=== PATIENT | female | born 1990 | race Caucasian/White ===

== ENCOUNTER 2017-10-21 07:16 | Inpatient (IN) | payer OTHER ==
[2017-10-21] MEDS ORDERED: Misoprostol 50 MCG (1/2 of 100 MCG) Tab ONE (07:57)
[2017-10-21] MEDS ORDERED: Misoprostol 50 MCG (1/2 of 100 MCG) Tab VAG ONE (08:06)
[2017-10-21] MEDS ORDERED: Acetaminophen 325 MG Tab PO PRN (08:13)
[2017-10-21] MEDS ORDERED: Sodium Chloride 0.9% 10 ML Syringe FLUSH PRN (08:13)
[2017-10-21] MEDS ORDERED: Ondansetron 4 MG Tab.DIS PO PRN (08:13)
[2017-10-21] MEDS ORDERED: Penicillin G Potassium 5 MILLUNITS in Sodium Chloride 0.9% 100 ML IV ONE (08:15)
--- NOTE | 2017-10-21 08:29 | PCM.LDHP ---
L&D History of Present Illness - General Date of Service: 10/21/17 (induction) Admit Problem/Dx: Patient Status Order with Admit Dx/Problem 10/21/17 08:13 Patient Status [ADT] Routine Admission Diagnosis/Problem Admission Diagnosis/Problem and not yet delivered Source of Information: Patient History Limitations: Reports: No Limitations - History of Present Illness Introduction:: 10/21/17 This 27 year old G1 who is 41 weeks presents for induction of labor. CE: /0 this morning. Labs: ABO AB pos RUbella Immune HIV neg GBS positive, treatment started - Related Data Allergies/Adverse Reactions: Allergies Allergy/AdvReac Type Severity Reaction Status Date / Time No Known Allergies Allergy Verified 09/16/17 12:32 Home Medications: Home Meds Cephalexin [Keflex] 500 mg PO BID 09/16/17 [History] Ondansetron [Zofran ODT] 8 mg PO Q8H 09/16/17 [History] hydrOXYzine Pamoate [Vistaril] 50 mg PO TID 09/16/17 [History] Past Medical History Respiratory History: Reports: Other (See Below) Other Respiratory History: Exercise induced asthma years ago. 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 Para: 0 LMP (Approximate): (SANJANA 10/14/17) - Infectious Disease History Infectious Disease History: Reports: Chicken Pox Social & Family History - Family History Family Medical History: Noncontributory - Tobacco Use Smoking Status *Q: Never Smoker Second Hand Smoke Exposure: No - Caffeine Use Caffeine Use: Reports: Coffee Other Caffeine Use: 1 cup per day - Recreational Drug Use Recreational Drug Use: No H&P Review of Systems - Review of Systems: Review Of Systems: See Below General: Reports: No Symptoms HEENT: Reports: No Symptoms Pulmonary: Reports: No Symptoms Cardiovascular: Reports: No Symptoms Gastrointestinal: Reports: No Symptoms Genitourinary: Reports: No Symptoms Musculoskeletal: Reports: No Symptoms Skin: Reports: No Symptoms Psychiatric: Reports: No Symptoms Neurological: Reports: No Symptoms Hematologic/Lymphatic: Reports: No Symptoms Immunologic: Reports: No Symptoms L&D Exam - Exam Exam: See Below - Vital Signs Vital Signs: Last Vital Signs Temp 96.8 F 10/21/17 07:24 Pulse 84 10/21/17 07:24 Resp 18 10/21/17 07:24 BP 103/69 10/21/17 07:24 Pulse Ox Weight: 158 lb - OB Specific Movement: Active Heart Tones: Present Heart Tones per Min: 140 Heart Rate (FHR) Variability: Moderate (6-25 bmp) Presentation: Vertex Estimated Weight: 8 pounds - Huang Score Huang Score Cervix Position: Posterior Huang Score Consistency: Soft Huang Score Effacement: >80% Huang Score Dilation: 1-2 cm Huang Score 's Station: -1 ,0 Huang Score Total: 8 - Exam General: Alert, Oriented HEENT: PERRLA, Conjunctiva Clear, EACs Clear, EOMI, Hearing Intact, Mucosa Moist & [place], Nares Patent, Normal Nasal Septum, Posterior Pharynx Clear, TMs Clear Neck: Supple, Trachea Midline Lungs: Clear to Auscultation, Normal Respiratory Effort Cardiovascular: Regular Rate, Regular Rhythm GI/Abdominal Exam: Normal Bowel Sounds, Soft, Non-Tender, No Organomegaly, No Distention, No Abnormal Bruit, No Mass, Pelvis Stable Rectal Exam: Normal Exam, Normal Rectal Tone Genitourinary: Normal external exam, Normal bimanual exam, Normal speculum exam Back Exam: Normal Inspection, Full Range of Motion Extremities: Normal Inspection, Normal Range of Motion, Non-Tender, No Pedal Edema, Normal Capillary Refill Skin: Warm, Dry, Intact Neurological: Cranial Nerves Intact, Reflexes Equal Bilateral Psychiatric: Alert, Normal Affect, Normal Mood - Patient Data Lab Results Last 24 hrs: Laboratory Results - last 24 hr 10/21/17 10/21/17 10/21/17 Range/Units 07:30 07:40 07:40 WBC 10.7 (4.5-11.0) K/uL RBC 3.68 (3.30-5.50) M/uL Hgb 12.2 (12.0-15.0) g/dL Hct 34.2 L (36.0-48.0) % MCV 93 (80-98) fL MCH 33 H (27-31) pg MCHC 36 (32-36) % Plt Count 228 (150-400) K/uL Neut % (Auto) 65 (36-66) % Lymph % (Auto) 27 (24-44) % [place] % (Auto) 7 H (2-6) % Eos % (Auto) 1 L (2-4) % Baso % (Auto) 0 (0-1) % Urine Color Yellow Urine Appearance Cloudy Urine pH 7.0 (4.5-8.0) Ur Specific [place] 1.010 (1.008-1.030) Urine Protein Negative (NEGATIVE) mg/dL Urine Glucose (UA) Normal (NEGATIVE) mg/dL Urine Ketones Negative (NEGATIVE) mg/dL Urine Occult Blood Negative (NEGATIVE) Urine Nitrite Negative (NEGATIVE) Urine Bilirubin Negative (NEGATIVE) Urine Urobilinogen Normal (NORMAL) mg/dL Ur Leukocyte Esterase Negative (NEGATIVE) Urine RBC Not seen (0-5) Urine WBC 0-5 (0-5) Ur Epithelial Cells Many Amorphous Sediment Not seen Urine Bacteria Many Urine Mucus Not seen Urine Opiates Screen Negative (NEGATIVE) Ur Oxycodone Screen Negative (NEGATIVE) Urine Methadone Screen Negative (NEGATIVE) Ur Propoxyphene Screen Negative (NEGATIVE) Ur Barbiturates Screen Negative (NEGATIVE) Ur Tricyclics Screen Negative (NEGATIVE) Ur Phencyclidine Scrn Negative (NEGATIVE) Ur Amphetamine Screen Negative (NEGATIVE) U Methamphetamines Scrn Negative (NEGATIVE) Urine MDMA Screen Negative (NEGATIVE) U Benzodiazepines Scrn Negative (NEGATIVE) U Cocaine Metab Screen Negative (NEGATIVE) U Marijuana (THC) Screen Negative (NEGATIVE) Result Diagrams: 10/21/17 07:30 - Problem List (1) Positive GBS test SNOMED Code(s): 5805798976351 ICD Code: B95.1 - STREPTOCOCCUS, GROUP B, CAUSING DISEASES CLASSD ELSWHR Status: Acute Current Visit: Yes (2) Encounter for planned induction of labor SNOMED Code(s): 992730522 ICD Code: Z34.90 - ENCNTR FOR SUPRVSN OF NORMAL , UNSP, UNSP TRIMESTER Status: Acute Current Visit: Yes (3) Post-dates SNOMED Code(s): 95770135 ICD Code: O48.0 - POST-TERM Status: Acute Current Visit: Yes Problem List Initiated/Reviewed/Updated: Yes Orders Last 24hrs: Active Orders 24 hr Category Date Time Status Patient Status [ADT] Routine ADT 10/21/17 08:13 Ordered Antiembolic Devices [RC] .Routine Care 10/21/17 08:19 Ordered Communication Order [RC] ASDIRECTED Care 10/21/17 08:13 Ordered Heart Tones [RC] PER UNIT ROUTINE Care 10/21/17 08:13 Ordered May Shower [RC] ASDIRECTED Care 10/21/17 08:13 Ordered Notify Provider Vital Signs [RC] PRN Care 10/21/17 08:13 Ordered Notify Provider [RC] PRN Care 10/21/17 08:13 Ordered Peripheral IV Care [RC] . DIRECTED Care 10/21/17 08:19 Ordered Up ad Kelly [RC] ASDIRECTED Care 10/21/17 08:13 Ordered VTE/DVT Education [RC] Click to Edit Care 10/21/17 08:19 Ordered Vital Signs [RC] PER UNIT ROUTINE Care 10/21/17 08:13 Ordered Clear Liquid Diet [DIET] Diet 10/21/17 Lunch Ordered Acetaminophen [Tylenol] Med 10/21/17 08:13 Ordered 650 mg PO Q4H PRN Ondansetron [Zofran ODT] Med 10/21/17 08:13 Ordered 4 mg PO Q4H PRN Oxytocin/Normal Saline [Pitocin in NS 20 Units/1,000 ML Med 10/21/17 08:21 Ordered ] 20 unit in 1,000 ml IV ONETIME Penicillin G Potassium [Pfizerpen] 2.5 millunits Med 10/21/17 12:00 Active Sodium Chloride 0.9% [Normal Saline] 50 ml IV Q4H Penicillin G Potassium [Pfizerpen] 5 millunits Med 10/21/17 08:15 Active Sodium Chloride 0.9% [Normal Saline] 100 ml IV ONETIME Sodium Chloride 0.9% [Saline Flush] Med 10/21/17 08:13 Ordered 10 ml FLUSH ASDIRECTED PRN DVT/VTE Prophylaxis Reflex [OM.PC] Routine Oth 10/21/17 08:13 Ordered Peripheral IV Insertion Adult [OM.PC] Routine Oth 10/21/17 08:13 Ordered Saline Lock Insert [OM.PC] Routine Oth 10/21/17 08:13 Ordered Resuscitation Status Routine Resus Stat 10/21/17 08:13 Ordered Medication Orders Acetaminophen (Tylenol) 650 mg PO Q4H PRN PRN Reason: Pain (Mild 1-3) and fever Penicillin G Potassium 5 (millunits/ Sodium Chloride) 100 mls @ 200 mls/hr IV ONETIME ONE Stop: 10/21/17 08:44 Penicillin G Potassium 2.5 (millunits/ Sodium Chloride) 50 mls @ 100 mls/hr IV Q4H SUSHIL Oxytocin/Sodium Chloride (Pitocin In Ns 20 Units/1,000 Ml) 20 unit in 1,000 mls @ 999 mls/hr IV ONETIME ONE PRN Reason: Protocol Stop: 10/21/17 09:21 Ondansetron HCl (Zofran Odt) 4 mg PO Q4H PRN PRN Reason: Nausea/Vomiting Sodium Chloride (Saline Flush) 10 ml FLUSH ASDIRECTED PRN PRN Reason: Keep Vein Open Assessment/Plan Comment:: 10/21/17 41 week IUP who is post dates, GBS positive induction for post dates Plan Misoprostol 50 mcg vaginally at 0800 monitor for labor up and about after one hour monitoring completed. GBS protocol
[2017-10-21] MEDS: Penicillin G Potassium 2.5 MILLUNITS in Sodium Chloride 0.9% 50 ML IV SCH ×3 (12:09→21:31)
--- NOTE | 2017-10-21 12:14 | PCM.PNLD ---
Labor Progress Note - VS & Meds Vital Signs: Last Vital Signs Temp 96.8 F 10/21/17 07:24 Pulse 84 10/21/17 07:24 Resp 18 10/21/17 08:40 BP 97/65 10/21/17 08:40 Pulse Ox Active Medications: Current Medications Acetaminophen (Tylenol) 650 mg PO Q4H PRN PRN Reason: Pain (Mild 1-3) and fever Penicillin G Potassium 2.5 (millunits/ Sodium Chloride) 50 mls @ 100 mls/hr IV Q4H SUSHIL Ondansetron HCl (Zofran Odt) 4 mg PO Q4H PRN PRN Reason: Nausea/Vomiting Sodium Chloride (Saline Flush) 10 ml FLUSH ASDIRECTED PRN PRN Reason: Keep Vein Open Discontinued Medications Penicillin G Potassium 5 (millunits/ Sodium Chloride) 100 mls @ 200 mls/hr IV ONETIME ONE Stop: 10/21/17 08:44 Last Admin: 10/21/17 08:32 Dose: 200 mls/hr Oxytocin/Sodium Chloride (Pitocin In Ns 20 Units/1,000 Ml) 20 unit in 1,000 mls @ 999 mls/hr IV ONETIME ONE PRN Reason: Protocol Stop: 10/21/17 09:21 Misoprostol (Cytotec) Confirm Administered Dose 50 mcg .ROUTE .STK-MED ONE Stop: 10/21/17 07:58 Last Admin: 10/21/17 08:13 Dose: Not Given Misoprostol (Cytotec) 50 mcg VAG ONETIME ONE Stop: 10/21/17 08:07 Last Admin: 10/21/17 07:55 Dose: 50 mcg - Uterine Contractions Uterine Monitoring Mode: External [place] Contraction Frequency (min): 1-3 Contraction Duration (sec): 40-60 Contraction Intensity: Mild to Moderate Uterine Resting Tone: Soft - Monitoring Monitor Mode: External Ultrasound Heart Rate (FHR) Baseline: 140 Heart Rate (FHR) Variability: Moderate (6-25 bmp) Accelerations: Present, 15x15 Decelerations: None Strip Review: Category I - Vaginal Exam Dilation (cm): 2 Effacement (Percent): 90 Station: 1 Cervical Position: Posterior Sterile Vaginal Exam Performed By: Carey Farah Vaginal Exam Comment: Bulging bag - Labor Progress (Free Text) Labor Progress: Contractions stronger some cervical change will reassess at 1530
--- NOTE | 2017-10-21 15:39 | PCM.PNLD ---
Labor Progress Note - VS & Meds Vital Signs: Last Vital Signs Temp 97.2 F 10/21/17 15:03 Pulse 67 10/21/17 15:03 Resp 16 10/21/17 15:03 BP 112/62 10/21/17 15:03 Pulse Ox 97 10/21/17 15:03 Active Medications: Current Medications Acetaminophen (Tylenol) 650 mg PO Q4H PRN PRN Reason: Pain (Mild 1-3) and fever Penicillin G Potassium 2.5 (millunits/ Sodium Chloride) 50 mls @ 100 mls/hr IV Q4H SUSHIL Last Admin: 10/21/17 12:09 Dose: 100 mls/hr Ondansetron HCl (Zofran Odt) 4 mg PO Q4H PRN PRN Reason: Nausea/Vomiting Sodium Chloride (Saline Flush) 10 ml FLUSH ASDIRECTED PRN PRN Reason: Keep Vein Open Discontinued Medications Penicillin G Potassium 5 (millunits/ Sodium Chloride) 100 mls @ 200 mls/hr IV ONETIME ONE Stop: 10/21/17 08:44 Last Admin: 10/21/17 08:32 Dose: 200 mls/hr Oxytocin/Sodium Chloride (Pitocin In Ns 20 Units/1,000 Ml) 20 unit in 1,000 mls @ 999 mls/hr IV ONETIME ONE PRN Reason: Protocol Stop: 10/21/17 09:21 Misoprostol (Cytotec) Confirm Administered Dose 50 mcg .ROUTE .STK-MED ONE Stop: 10/21/17 07:58 Last Admin: 10/21/17 08:13 Dose: Not Given Misoprostol (Cytotec) 50 mcg VAG ONETIME ONE Stop: 10/21/17 08:07 Last Admin: 10/21/17 07:55 Dose: 50 mcg - Uterine Contractions Uterine Monitoring Mode: External [place] Contraction Frequency (min): 2 Contraction Duration (sec): 60-65 Contraction Intensity: Mild to Moderate Uterine Resting Tone: Soft - Monitoring Monitor Mode: External Ultrasound Heart Rate (FHR) Baseline: 140 Heart Rate (FHR) Variability: Moderate (6-25 bmp) Accelerations: Present, 15x15 Decelerations: None Strip Review: Category I - Vaginal Exam Dilation (cm): 3 Effacement (Percent): 90 Station: 1 Cervical Position: Anterior Sterile Vaginal Exam Performed By: Carey Farah Vaginal Exam Comment: Bulging bag, membranes stripped - Labor Progress (Free Text) Labor Progress: Larissa regularly, latent labor
[2017-10-21] MEDS ORDERED: Lactated Ringers 500 ML IV SCH (17:30)
--- NOTE | 2017-10-21 18:04 | PCM.PNLD ---
Labor Progress Note - VS & Meds Vital Signs: Last Vital Signs Temp 97.2 F 10/21/17 15:03 Pulse 67 10/21/17 15:03 Resp 16 10/21/17 15:03 BP 112/62 10/21/17 15:03 Pulse Ox 97 10/21/17 15:03 Active Medications: Current Medications Acetaminophen (Tylenol) 650 mg PO Q4H PRN PRN Reason: Pain (Mild 1-3) and fever Penicillin G Potassium 2.5 (millunits/ Sodium Chloride) 50 mls @ 100 mls/hr IV Q4H [facility] Last Admin: 10/21/17 15:55 Dose: 100 mls/hr Lactated Ringer's (Ringers, Lactated) 500 mls @ 500 mls/hr IV ASDIRECTED SUSHIL Ondansetron HCl (Zofran Odt) 4 mg PO Q4H PRN PRN Reason: Nausea/Vomiting Sodium Chloride (Saline Flush) 10 ml FLUSH ASDIRECTED PRN PRN Reason: Keep Vein Open Discontinued Medications Penicillin G Potassium 5 (millunits/ Sodium Chloride) 100 mls @ 200 mls/hr IV ONETIME ONE Stop: 10/21/17 08:44 Last Admin: 10/21/17 08:32 Dose: 200 mls/hr Oxytocin/Sodium Chloride (Pitocin In Ns 20 Units/1,000 Ml) 20 unit in 1,000 mls @ 999 mls/hr IV ONETIME ONE PRN Reason: Protocol Stop: 10/21/17 09:21 Misoprostol (Cytotec) Confirm Administered Dose 50 mcg .ROUTE .STK-MED ONE Stop: 10/21/17 07:58 Last Admin: 10/21/17 08:13 Dose: Not Given Misoprostol (Cytotec) 50 mcg VAG ONETIME ONE Stop: 10/21/17 08:07 Last Admin: 10/21/17 07:55 Dose: 50 mcg - Uterine Contractions Uterine Monitoring Mode: External [place] Contraction Frequency (min): 1-3.5 Contraction Duration (sec): 40-80 Contraction Intensity: Mild to Moderate Uterine Resting Tone: Soft - Monitoring Monitor Mode: External Ultrasound Heart Rate (FHR) Baseline: 140 Heart Rate (FHR) Variability: Moderate (6-25 bmp) Accelerations: Present, 15x15 Decelerations: None Strip Review: Category I - Vaginal Exam Dilation (cm): 5 Effacement (Percent): 90 Station: 1 Cervical Position: Anterior Sterile Vaginal Exam Performed By: Carey Farah Vaginal Exam Comment: Bulging bag, membranes stripped - Labor Progress (Free Text) Labor Progress: nice progress, now active
[2017-10-21] MEDS ORDERED: fentaNYL 100 MCG/2 ML SDV IVPUSH ONE (19:51)
--- NOTE | 2017-10-21 20:13 | PCM.PNLD ---
Labor Progress Note - VS & Meds Vital Signs: Last Vital Signs Temp 97.3 F 10/21/17 17:46 Pulse 62 10/21/17 17:46 Resp 18 10/21/17 17:46 BP 117/68 10/21/17 17:46 Pulse Ox 95 10/21/17 17:46 Active Medications: Current Medications Acetaminophen (Tylenol) 650 mg PO Q4H PRN PRN Reason: Pain (Mild 1-3) and fever Penicillin G Potassium 2.5 (millunits/ Sodium Chloride) 50 mls @ 100 mls/hr IV Q4H [facility] Last Admin: 10/21/17 15:55 Dose: 100 mls/hr Lactated Ringer's (Ringers, Lactated) 500 mls @ 500 mls/hr IV ASDIRECTED [facility] Last Admin: 10/21/17 18:04 Dose: 500 mls/hr Ondansetron HCl (Zofran Odt) 4 mg PO Q4H PRN PRN Reason: Nausea/Vomiting Sodium Chloride (Saline Flush) 10 ml FLUSH ASDIRECTED PRN PRN Reason: Keep Vein Open Discontinued Medications Fentanyl (Sublimaze) 100 mcg IVPUSH ONETIME ONE Stop: 10/21/17 19:52 Last Admin: 10/21/17 20:03 Dose: 100 mcg Penicillin G Potassium 5 (millunits/ Sodium Chloride) 100 mls @ 200 mls/hr IV ONETIME ONE Stop: 10/21/17 08:44 Last Admin: 10/21/17 08:32 Dose: 200 mls/hr Oxytocin/Sodium Chloride (Pitocin In Ns 20 Units/1,000 Ml) 20 unit in 1,000 mls @ 999 mls/hr IV ONETIME ONE PRN Reason: Protocol Stop: 10/21/17 09:21 Misoprostol (Cytotec) Confirm Administered Dose 50 mcg .ROUTE .STK-MED ONE Stop: 10/21/17 07:58 Last Admin: 10/21/17 08:13 Dose: Not Given Misoprostol (Cytotec) 50 mcg VAG ONETIME ONE Stop: 10/21/17 08:07 Last Admin: 10/21/17 07:55 Dose: 50 mcg - Uterine Contractions Uterine Monitoring Mode: None in Use Contraction Frequency (min): 1-4 Contraction Duration (sec): 70-90 Contraction Intensity: Mild to Moderate Uterine Resting Tone: Soft - Monitoring Monitor Mode: External Ultrasound Heart Rate (FHR) Baseline: 140 Heart Rate (FHR) Variability: Moderate (6-25 bmp) Accelerations: Present, 15x15 Decelerations: None Strip Review: Category I - Vaginal Exam Dilation (cm): 5 Effacement (Percent): 100 Station: 1 Cervical Position: Anterior Sterile Vaginal Exam Performed By: Carey Farah Vaginal Exam Comment: AROM @1948 clear fluid - Labor Progress (Free Text) Labor Progress: Very uncomfortable had IV Fentanyl, helped with relaxing her. Planning for vaginal delivery
[2017-10-21] MEDS ORDERED: ePHEDrine 50 MG/ML SDV IVPUSH ONE (20:32)
[2017-10-21] MEDS ORDERED: Lactated Ringers 1,000 ML IV ONE ×3 (20:32→22:40)
[2017-10-21] MEDS ORDERED: ePHEDrine 50 MG/ML SDV IV PRN (20:34)
[2017-10-21] MEDS ORDERED: Naloxone 0.4 MG/ML SDV IVPUSH PRN (20:35)
[2017-10-21] MEDS ORDERED: Ropivacaine 100 ML EPIDUR SCH (20:35)
[2017-10-21] MEDS ORDERED: Misoprostol 200 MCG Tab ONE ×3 (22:56→23:01)
[2017-10-21] MEDS ORDERED: Methylergonovine 0.2 MG/1 ML Amp IV ONE (23:00)
[2017-10-22] MEDS ORDERED: Witch Hazel Medicated Pads 100/Jar TOP PRN (00:06)
[2017-10-22] MEDS ORDERED: Benzocaine 20% Top Spray 56 GM Bottle TOP PRN (00:06)
[2017-10-22] MEDS ORDERED: Acetaminophen/Codeine 300-30 MG Tab PO PRN (00:06)
[2017-10-22] MEDS ORDERED: Lanolin 100% Cream 40 GM Tube TOP PRN (00:06)
[2017-10-22] MEDS ORDERED: Methylergonovine 0.2 MG Tab PO PRN (00:11)
--- NOTE | 2017-10-22 00:11 | PCM.DEL ---
<Lola Anderson - Last Filed: 10/22/17 00:06> L & D Note - General Info Date of Service: 10/21/17 Mother's Due Date: 10/14/17 - Delivery Note Labor: Spontaneous, Induced by ARM, Induced by Oxytocin Cervical Ripening Method: Misoprostil Delivery Outcome: Livebirth Delivery Method: Spontaneous Vaginal Delivery-Single Infant Delivery Mode: Spontaneous Presentation: Left Occiput Anterior (ANNIE) Nuchal Cord: None Anesthesia Type: Epidural Amniotic Fluid Description: Clear Episiotomy Type: None Laceration: 2nd Degree, Labial (Right labial hole repaired with running and interrupted sutures; left labial split repaired with running sutures; ), Perineal (2nd degree perineal tear repaired with locking), Vaginal (vaginal wall tear repaired with interrupted sutures) Suture type: Vicryl Suture size: 3-0 Placenta: Intact, Expressed Cord: 3 Vessels Estimated Blood Loss: 500 (mL) Resuscitation Needed: No : Stimulated, Warmed Score 1 min: 9 Score 5 min: 9 Post Delivery Events: Hemorrhage Second Stage Interventions: Reports: Encouragement Given, Laboring Down, Pushing Effectively, Pushing, Pulls Own Legs Back, Pushing, Squat Bar Pulling on Sheet Delivery Comments (Free Text/Narrative):: Abigail Dang is a 27 year old G1 now P1 female who presented for induction today at 41w and 0d and delivered a healthy male ANNIE with Apgars of 9 and 9 at 22:50 via spontaneous vaginal delivery. 3 cord vessel. Placenta expressed with uterine massage, gentle cord traction, and IV pitocin--appears complete/intact with expected calcifications per post-dates. Several labial, perineal, and vaginal lacerations. Specifically: Right labial hole repaired with running adn interrupted sutures; left labial split/tear repaired with running stitches; 2nd degree perineal laceration repaired with locking sutures; 2nd degree vaginal wall laceration repaired with interrupted sutures. EBL: 500mL; managed with 1 dose 0.2mg IM methergine; 2 large bore IVs in placed ; pt received nearly 2L lactated ringers Dispo: mother with baby in recovery room in stable condition Induction Criteria - Huang Score Huang Score Dilation: 1-2 cm Huang Score Effacement: 40-50% Huang Score Infant's Station: -1 ,0 Huang Score Consistency: Soft Huang Score Cervix Position: Posterior Huang Score Total: 6 Huang Score Presenting Part: Reports: Cephalic - Induction Gestational Age >/= 39 wks: Yes Estimated Pelvis: Reports: Adequate Reassuring Monitoring Strip: Yes Absence of Tachy Systole: Yes - General Info Date of Service: 10/21/17 Admission Dx/Problem (Free Text): spontaneous vaginal delivery Functional Status: Reports: Pain Controlled (with epidural) - Review of Systems General: Reports: No Symptoms HEENT: Reports: No Symptoms Pulmonary: Reports: No Symptoms Cardiovascular: Reports: No Symptoms Gastrointestinal: Reports: No Symptoms Genitourinary: Reports: No Symptoms Musculoskeletal: Reports: No Symptoms Skin: Reports: No Symptoms Neurological: Reports: No Symptoms Psychiatric: Reports: No Symptoms - Patient Data Vitals - Most Recent: Last Vital Signs Temp 98.4 F 10/21/17 20:39 Pulse 70 10/21/17 21:07 Resp 18 10/21/17 21:07 BP 116/65 10/21/17 21:07 Pulse Ox 99 10/21/17 21:07 Weight - Most Recent: 158 lb 0.014 oz I&O - Last 24 Hours: Intake & Output 10/21/17 10/21/17 10/22/17 14:59 22:59 06:59 Intake Total 550 1600 Balance 550 1600 Lab Results Last 24 Hours: Laboratory Results - last 24 hr 10/21/17 10/21/17 10/21/17 Range/Units 07:30 07:40 07:40 WBC 10.7 (4.5-11.0) K/uL RBC 3.68 (3.30-5.50) M/uL Hgb 12.2 (12.0-15.0) g/dL Hct 34.2 L (36.0-48.0) % MCV 93 (80-98) fL MCH 33 H (27-31) pg MCHC 36 (32-36) % Plt Count 228 (150-400) K/uL Neut % (Auto) 65 (36-66) % Lymph % (Auto) 27 (24-44) % [place] % (Auto) 7 H (2-6) % Eos % (Auto) 1 L (2-4) % Baso % (Auto) 0 (0-1) % Urine Color Yellow Urine Appearance Cloudy Urine pH 7.0 (4.5-8.0) Ur Specific [place] 1.010 (1.008-1.030) Urine Protein Negative (NEGATIVE) mg/dL Urine Glucose (UA) Normal (NEGATIVE) mg/dL Urine Ketones Negative (NEGATIVE) mg/dL Urine Occult Blood Negative (NEGATIVE) Urine Nitrite Negative (NEGATIVE) Urine Bilirubin Negative (NEGATIVE) Urine Urobilinogen Normal (NORMAL) mg/dL Ur Leukocyte Esterase Negative (NEGATIVE) Urine RBC Not seen (0-5) Urine WBC 0-5 (0-5) Ur Epithelial Cells Many Amorphous Sediment Not seen Urine Bacteria Many Urine Mucus Not seen Urine Opiates Screen Negative (NEGATIVE) Ur Oxycodone Screen Negative (NEGATIVE) Urine Methadone Screen Negative (NEGATIVE) Ur Propoxyphene Screen Negative (NEGATIVE) Ur Barbiturates Screen Negative (NEGATIVE) Ur Tricyclics Screen Negative (NEGATIVE) Ur Phencyclidine Scrn Negative (NEGATIVE) Ur Amphetamine Screen Negative (NEGATIVE) U Methamphetamines Scrn Negative (NEGATIVE) Urine MDMA Screen Negative (NEGATIVE) U Benzodiazepines Scrn Negative (NEGATIVE) U Cocaine Metab Screen Negative (NEGATIVE) U Marijuana (THC) Screen Negative (NEGATIVE) Med Orders - Current: Current Medications Acetaminophen (Tylenol) 650 mg PO Q4H PRN PRN Reason: Pain (Mild 1-3) and fever Ephedrine Sulfate (Ephedrine Sulfate) 5 - 10 mg IV ASDIRECTED PRN PRN Reason: Systolic BP less than 100 Penicillin G Potassium 2.5 (millunits/ Sodium Chloride) 50 mls @ 100 mls/hr IV Q4H [facility] Last Admin: 10/21/17 21:31 Dose: 100 mls/hr Lactated Ringer's (Ringers, Lactated) 500 mls @ 500 mls/hr IV ASDIRECTED [facility] Last Admin: 10/21/17 18:04 Dose: 500 mls/hr Ropivacaine (Naropin 0.2%) 100 mls @ 0 mls/hr EPIDUR ASDIRECTED [facility]; Titrate PRN Reason: Protocol Last Admin: 10/21/17 21:22 Dose: 12 mls/hr, 12 mls/hr Lactated Ringer's (Ringers, Lactated) 1,000 mls @ 999 mls/hr IV BOLUS [facility] Naloxone HCl (Narcan) 0.1 mg IVPUSH Q5M PRN PRN Reason: IF RESP RATE LESS THAN 6 Ondansetron HCl (Zofran Odt) 4 mg PO Q4H PRN PRN Reason: Nausea/Vomiting Sodium Chloride (Saline Flush) 10 ml FLUSH ASDIRECTED PRN PRN Reason: Keep Vein Open Discontinued Medications Ephedrine Sulfate (Ephedrine Sulfate) 5 mg IVPUSH ONETIME ONE Stop: 10/21/17 20:33 Fentanyl (Sublimaze) 100 mcg IVPUSH ONETIME ONE Stop: 10/21/17 19:52 Last Admin: 10/21/17 20:03 Dose: 100 mcg Penicillin G Potassium 5 (millunits/ Sodium Chloride) 100 mls @ 200 mls/hr IV ONETIME ONE Stop: 10/21/17 08:44 Last Admin: 10/21/17 08:32 Dose: 200 mls/hr Oxytocin/Sodium Chloride (Pitocin In Ns 20 Units/1,000 Ml) 20 unit in 1,000 mls @ 999 mls/hr IV ONETIME ONE PRN Reason: Protocol Stop: 10/21/17 09:21 Lactated Ringer's (Ringers, Lactated) 1,000 mls @ 999 mls/hr IV .BOLUS ONE Stop: 10/21/17 21:32 Last Admin: 10/21/17 20:45 Dose: 999 mls/hr Lactated Ringer's (Ringers, Lactated) 1,000 mls @ 999 mls/hr IV .BOLUS ONE Stop: 10/21/17 21:32 Last Admin: 10/21/17 21:26 Dose: Not Given Misoprostol (Cytotec) Confirm Administered Dose 50 mcg .ROUTE .STK-MED ONE Stop: 10/21/17 07:58 Last Admin: 10/21/17 08:13 Dose: Not Given Misoprostol (Cytotec) 50 mcg VAG ONETIME ONE Stop: 10/21/17 08:07 Last Admin: 10/21/17 07:55 Dose: 50 mcg Misoprostol (Cytotec) Confirm Administered Dose 800 mcg .ROUTE .STK-MED ONE Stop: 10/21/17 22:57 Misoprostol (Cytotec) Confirm Administered Dose 800 mcg .ROUTE .STK-MED ONE Stop: 10/21/17 22:57 Misoprostol (Cytotec) Confirm Administered Dose 800 mcg .ROUTE .STK-MED ONE Stop: 10/21/17 23:02 - Exam General: Alert, Oriented, Cooperative, No Acute Distress HEENT: Pupils Equal, Pupils Reactive, EOMI Neck: Supple, Trachea Midline, No JVD, No Thyromegaly Lungs: Clear to Auscultation, Normal Respiratory Effort Cardiovascular: Regular Rate, Regular Rhythm, No Murmurs GI/Abdominal Exam: Normal Bowel Sounds (Female) Exam: Vaginal Tears (See L&D notes on labial, perineal, and vaginal lacerations) Back Exam: Normal Inspection, Full Range of Motion Extremities: Normal Inspection, Normal Range of Motion, Non-Tender, No Pedal Edema, Normal Capillary Refill Skin: Warm, Dry, Intact Neurological: No New Focal Deficit Psy/Mental Status: Alert, Normal Affect, Normal Mood, Other (excited to meet baby) - Problem List Review Problem List Initiated/Reviewed/Updated: Yes - Plan Plan:: 10/21/17 41 week IUP who is post dates, GBS positive induction for post dates Plan Misoprostol 50 mcg vaginally at 0800 monitor for labor up and about after one hour monitoring completed. GBS protocol 10/22/17 with at 41w0d with hemorrhage managed with methergine, pitocin, LR, laceration repair, and manual uterine massage -use methergine PRN overnight for uncontrolled bleeding -CBC this morning (10/22) -transfer pt to room -ice to bottom -routine cares--check vitals, monitor bleeding, ambulate as able <Carey Farah - Last Filed: 10/22/17 08:34> L & D Note - Delivery Note Labor: No: Induced by ARM, Induced by Oxytocin Provider: Maricel Villegas Delivery Comments (Free Text/Narrative):: IV pitocin used for bleeding as well. cried spontaneously at time of delivery. Apgars 9,9. Three vessel cord. - Patient Data Vitals - Most Recent: Last Vital Signs Temp 98.2 F 10/22/17 03:00 Pulse 78 10/22/17 03:00 Resp 16 10/22/17 03:00 BP 129/75 10/22/17 03:00 Pulse Ox 99 10/22/17 03:00 I&O - Last 24 Hours: Intake & Output 10/21/17 10/22/17 10/22/17 22:59 06:59 14:59 Intake Total 1600 3000 Output Total 250 Balance 1350 3000 Lab Results Last 24 Hours: Laboratory Results - last 24 hr 10/22/17 Range/Units 05:45 WBC 16.0 H (4.5-11.0) K/uL RBC 3.45 (3.30-5.50) M/uL Hgb 11.4 L (12.0-15.0) g/dL Hct 31.7 L (36.0-48.0) % MCV 92 (80-98) fL MCH 33 H (27-31) pg MCHC 36 (32-36) % Plt Count 187 (150-400) K/uL Neut % (Auto) 76 H (36-66) % Lymph % (Auto) 15 L (24-44) % Wetzel % (Auto) 9 H (2-6) % Eos % (Auto) 0 L (2-4) % Baso % (Auto) 0 (0-1) % Med Orders - Current: Current Medications Acetaminophen (Tylenol) 650 mg PO Q4H PRN PRN Reason: Pain (Mild 1-3) and fever Acetaminophen/Codeine Phosphate (Tylenol With Codeine No.3 300mg/30mg) 1 tab PO Q4H PRN PRN Reason: Pain (moderate 4-6) Last Admin: 10/22/17 03:03 Dose: 1 tab Benzocaine (Jypc-Y-Yjurbgv 20% [place]) 0 gm TOP Q4H PRN PRN Reason: Perineal Comfort Measure Docusate Sodium (Colace) 100 mg PO BID [facility] Emollient Ointment (Lansinoh Hpa) 1 gm TOP ASDIRECTED PRN PRN Reason: Sore Nipples Ibuprofen (Motrin) 600 mg PO Q6H PRN PRN Reason: mild pain or fever Last Admin: 10/22/17 03:02 Dose: 600 mg Methylergonovine Maleate (Methergine) 0.2 mg PO TID PRN PRN Reason: Bleeding Ondansetron HCl (Zofran Odt) 4 mg PO Q4H PRN PRN Reason: Nausea/Vomiting Sodium Chloride (Saline Flush) 10 ml FLUSH ASDIRECTED PRN PRN Reason: Keep Vein Open Witch Ellie (Tucks) 1 pad TOP ASDIRECTED PRN PRN Reason: Hemorrhoids Discontinued Medications Ephedrine Sulfate (Ephedrine Sulfate) 5 mg IVPUSH ONETIME ONE Stop: 10/21/17 20:33 Last Admin: 10/22/17 04:50 Dose: Not Given Ephedrine Sulfate (Ephedrine Sulfate) 5 - 10 mg IV ASDIRECTED PRN PRN Reason: Systolic BP less than 100 Fentanyl (Sublimaze) 100 mcg IVPUSH ONETIME ONE Stop: 10/21/17 19:52 Last Admin: 10/21/17 20:03 Dose: 100 mcg Penicillin G Potassium 5 (millunits/ Sodium Chloride) 100 mls @ 200 mls/hr IV ONETIME ONE Stop: 10/21/17 08:44 Last Admin: 10/21/17 08:32 Dose: 200 mls/hr Penicillin G Potassium 2.5 (millunits/ Sodium Chloride) 50 mls @ 100 mls/hr IV Q4H [facility] Last Admin: 10/22/17 04:52 Dose: Not Given Oxytocin/Sodium Chloride (Pitocin In Ns 20 Units/1,000 Ml) 20 unit in 1,000 mls @ 999 mls/hr IV ONETIME ONE PRN Reason: Protocol Stop: 10/21/17 09:21 Last Titration: 10/21/17 23:20 Dose: 125 ml/hr, 125 mls/hr Lactated Ringer's (Ringers, Lactated) 500 mls @ 500 mls/hr IV ASDIRECTED [facility] Last Admin: 10/21/17 18:04 Dose: 500 mls/hr Lactated Ringer's (Ringers, Lactated) 1,000 mls @ 999 mls/hr IV .BOLUS ONE Stop: 10/21/17 21:32 Last Admin: 10/21/17 20:45 Dose: 999 mls/hr Lactated Ringer's (Ringers, Lactated) 1,000 mls @ 999 mls/hr IV .BOLUS ONE Stop: 10/21/17 21:32 Last Admin: 10/21/17 21:26 Dose: Not Given Ropivacaine (Naropin 0.2%) 100 mls @ 0 mls/hr EPIDUR ASDIRECTED [facility]; Titrate PRN Reason: Protocol Last Admin: 10/21/17 21:22 Dose: 12 mls/hr, 12 mls/hr Lactated Ringer's (Ringers, Lactated) 1,000 mls @ 999 mls/hr IV ONETIME ONE Stop: 10/21/17 23:40 Last Admin: 10/21/17 23:00 Dose: 999 mls/hr Methylergonovine Maleate (Methergine) 0.2 mg IV STAT ONE Stop: 10/21/17 23:01 Last Admin: 10/21/17 23:03 Dose: 0.2 mg Misoprostol (Cytotec) Confirm Administered Dose 50 mcg .ROUTE .STK-MED ONE Stop: 10/21/17 07:58 Last Admin: 10/21/17 08:13 Dose: Not Given Misoprostol (Cytotec) 50 mcg VAG ONETIME ONE Stop: 10/21/17 08:07 Last Admin: 10/21/17 07:55 Dose: 50 mcg Misoprostol (Cytotec) Confirm Administered Dose 800 mcg .ROUTE .STK-MED ONE Stop: 10/21/17 22:57 Last Admin: 10/22/17 00:58 Dose: Not Given Misoprostol (Cytotec) Confirm Administered Dose 800 mcg .ROUTE .STK-MED ONE Stop: 10/21/17 22:57 Last Admin: 10/22/17 00:58 Dose: Not Given Misoprostol (Cytotec) Confirm Administered Dose 800 mcg .ROUTE .STK-MED ONE Stop: 10/21/17 23:02 Last Admin: 10/22/17 00:58 Dose: Not Given Naloxone HCl (Narcan) 0.1 mg IVPUSH Q5M PRN PRN Reason: IF RESP RATE LESS THAN 6 - Exam (Female) Exam: Cervical Dilatation, Enlarged Uterus, Vaginal Bleeding - Problem List & Annotations (1) Positive GBS test SNOMED Code(s): 4871945676411 Code(s): B95.1 - STREPTOCOCCUS, GROUP B, CAUSING DISEASES CLASSD ELSWHR Status: Acute Current Visit: Yes (2) Encounter for planned induction of labor SNOMED Code(s): 108380724 Code(s): Z34.90 - ENCNTR FOR SUPRVSN OF NORMAL , UNSP, UNSP TRIMESTER Status: Acute Current Visit: Yes (3) Post-dates SNOMED Code(s): 28563968 Code(s): O48.0 - POST-TERM Status: Acute Current Visit: Yes (4) Laceration of labia majora SNOMED Code(s): 792909724 Code(s): S31.41XA - LACERATION W/O FOREIGN BODY OF VAGINA AND VULVA, INIT ENCNTR Status: Acute Current Visit: Yes (5) Laceration of perineum SNOMED Code(s): 017796468 Code(s): S31.41XA - LACERATION W/O FOREIGN BODY OF VAGINA AND VULVA, INIT ENCNTR Status: Acute Current Visit: Yes (6) hemorrhage SNOMED Code(s): 14541202 Code(s): O72.1 - OTHER IMMEDIATE HEMORRHAGE Status: Acute Current Visit: Yes (7) SNOMED Code(s): 69435031 Code(s): Z34.90 - ENCNTR FOR SUPRVSN OF NORMAL , UNSP, UNSP TRIMESTER Status: Acute Current Visit: Yes Qualifiers: Weeks of gestation: 41 weeks Qualified Code(s): Z3A.41 - 41 weeks gestation of (8) Spontaneous vaginal delivery SNOMED Code(s): 39511216 Code(s): O80 - ENCOUNTER FOR FULL-TERM UNCOMPLICATED DELIVERY Status: Acute Current Visit: Yes - Problem List Review Problem List Initiated/Reviewed/Updated: Yes - My Orders Last 24 Hours: My Active Orders 10/21/17 08:13 May Shower [RC] ASDIRECTED Notify Provider Vital Signs [RC] PRN Up ad Kelly [RC] ASDIRECTED Vital Signs [RC] Q4H Acetaminophen [Tylenol] 650 mg PO Q4H PRN Ondansetron [Zofran ODT] 4 mg PO Q4H PRN Sodium Chloride 0.9% [Saline Flush] 10 ml FLUSH ASDIRECTED PRN DVT/VTE Prophylaxis Reflex [OM.PC] Routine Peripheral IV Insertion Adult [OM.PC] Routine Saline Lock Insert [OM.PC] Routine Resuscitation Status Routine 10/21/17 08:19 Antiembolic Devices [RC] .Routine Peripheral IV Care [RC] Q12H VTE/DVT Education [RC] .PRN 10/21/17 20:32 Epidural Catheter Management [OM.PC] Urgent 10/21/17 21:00 Ayoub Catheter Insertion [Insert Urinary Catheter] [OM.PC] Q24H 10/22/17 00:06 Patient Status [ADT] Routine Acetaminophen/Codeine [Tylenol with Codeine No.3 300MG/30MG] 1 tab PO Q4H PRN Benzocaine [Spsd-X-[place] 20% [place]] See Dose Instructions TOP Q4H PRN Ibuprofen [Motrin] 600 mg PO Q6H PRN Lanolin [Lansinoh HPA] 1 gm TOP ASDIRECTED PRN Witch Ellie [Tucks] 1 pad TOP ASDIRECTED PRN Assess Lochia [WOMSER] Per Unit Routine Assess Uterine Involution [WOMSER] Per Unit Routine 10/22/17 00:07 Ice Therapy [OM.PC] Per Unit Routine Perineal Care [OM.PC] Per Unit Routine Sitz Bath [OM.PC] Per Unit Routine 10/22/17 00:11 Methylergonovine [Methergine] 0.2 mg PO TID PRN 10/22/17 09:00 Docusate Sodium [Colace] 100 mg PO BID 10/22/17 Breakfast Regular Diet [DIET]
[2017-10-22] MEDS: Penicillin G Potassium 2.5 MILLUNITS in Sodium Chloride 0.9% 50 ML IV SCH ×2 (00:59→04:52)
[2017-10-22] MEDS: Ibuprofen 600 MG Tab PO PRN ×2 (03:02→18:17)
--- NOTE | 2017-10-22 05:08 | ANES ---
DATE OF SERVICE: 10/21/2017 TIME: 2030 hours. INDICATION: I was called to the obstetrics unit by Lisha Farah to evaluate Ms. Dang for a labor epidural. This is her first baby and she is approximately 5 to 6 cm and laboring nicely. I explained the risks and benefits of the procedure to the patient. She wished to proceed with labor epidural. TECHNIQUE: I placed her in the sitting position. Her back was prepped x3 with Betadine, 1% lidocaine skin local was used. The epidural was placed at L2-L3 using a 17-gauge Tuohy needle in loss of resistance technique. The epidural had very good feel throughout and the epidural space was easily identified. There was negative CSF, negative blood, and negative paresthesias noted. Therefore, a catheter was threaded to 13 cm at the skin. There was negative CSF, negative blood, negative paresthesias with the catheter as well. A 3 mL test dose of 1.5% lidocaine with epinephrine was given and this test dose was negative. The catheter was then secured with Tegaderm and tape, and the patient was placed in the supine position. Her vital signs remained stable after the test dose, therefore, a bolus of 10 mL of 0.2% ropivacaine was given. She had good results with the bolus, therefore, a 0.2% ropivacaine drip was started at 12 mL/h. Her vital signs remained stable throughout the procedure and the nurse was with me the entire procedure. There were no anesthesia complications noted and we will continue to monitor her throughout her Labor and Delivery stay. Zain Stevens CRNA /[id number]
[2017-10-22] MEDS: Docusate Sodium 100 MG Cap PO SCH ×2 (08:48→21:47)
[2017-10-22] MEDS ORDERED: Carboprost Tromethamine 250 MCG/1 ML Amp ONE (09:37)
[2017-10-22] MEDS ORDERED: Methylergonovine 0.2 MG/1 ML Amp ONE (09:38)
--- NOTE | 2017-10-22 18:39 | PCM.PNPP ---
- General Info Date of Service: 10/22/17 (PPD 1) Admission Dx/Problem (Free Text): spontaneous vaginal delivery Functional Status: Reports: Pain Controlled - Review of Systems General: Reports: No Symptoms HEENT: Reports: No Symptoms Pulmonary: Reports: No Symptoms Cardiovascular: Reports: No Symptoms Gastrointestinal: Reports: No Symptoms Genitourinary: Reports: No Symptoms Musculoskeletal: Reports: No Symptoms Skin: Reports: No Symptoms Neurological: Reports: No Symptoms Psychiatric: Reports: No Symptoms - General Info Date of Service: 10/22/17 - Patient Data Vital Signs - Most Recent: Last Vital Signs Temp 97.5 F 10/22/17 18:00 Pulse 76 10/22/17 18:00 Resp 16 10/22/17 18:00 BP 113/64 10/22/17 18:00 Pulse Ox 98 10/22/17 18:00 Weight - Most Recent: 158 lb 0.014 oz I&O - Last 24 Hours: Intake & Output 10/22/17 10/22/17 10/22/17 06:59 14:59 22:59 Intake Total 3000 Output Total 400 Balance 3000 -400 Lab Results - Last 24 Hours: Laboratory Results - last 24 hr 10/22/17 Range/Units 05:45 WBC 16.0 H (4.5-11.0) K/uL RBC 3.45 (3.30-5.50) M/uL Hgb 11.4 L (12.0-15.0) g/dL Hct 31.7 L (36.0-48.0) % MCV 92 (80-98) fL MCH 33 H (27-31) pg MCHC 36 (32-36) % Plt Count 187 (150-400) K/uL Neut % (Auto) 76 H (36-66) % Lymph % (Auto) 15 L (24-44) % [place] % (Auto) 9 H (2-6) % Eos % (Auto) 0 L (2-4) % Baso % (Auto) 0 (0-1) % Med Orders - Current: Current Medications Acetaminophen (Tylenol) 650 mg PO Q4H PRN PRN Reason: Pain (Mild 1-3) and fever Last Admin: 10/22/17 08:47 Dose: 650 mg Acetaminophen/Codeine Phosphate (Tylenol With Codeine No.3 300mg/30mg) 1 tab PO Q4H PRN PRN Reason: Pain (moderate 4-6) Last Admin: 10/22/17 03:03 Dose: 1 tab Benzocaine (Gymc-G-Ruukhth 20% [place]) 0 gm TOP Q4H PRN PRN Reason: Perineal Comfort Measure Docusate Sodium (Colace) 100 mg PO BID [facility] Last Admin: 10/22/17 08:48 Dose: 100 mg Emollient Ointment (Lansinoh Hpa) 1 gm TOP ASDIRECTED PRN PRN Reason: Sore Nipples Ibuprofen (Motrin) 600 mg PO Q6H PRN PRN Reason: mild pain or fever Last Admin: 10/22/17 18:17 Dose: 600 mg Methylergonovine Maleate (Methergine) 0.2 mg PO TID PRN PRN Reason: Bleeding Ondansetron HCl (Zofran Odt) 4 mg PO Q4H PRN PRN Reason: Nausea/Vomiting Sodium Chloride (Saline Flush) 10 ml FLUSH ASDIRECTED PRN PRN Reason: Keep Vein Open Amaris Argueta (Marek) 1 pad TOP ASDIRECTED PRN PRN Reason: Hemorrhoids Discontinued Medications Ephedrine Sulfate (Ephedrine Sulfate) 5 mg IVPUSH ONETIME ONE Stop: 10/21/17 20:33 Last Admin: 10/22/17 04:50 Dose: Not Given Ephedrine Sulfate (Ephedrine Sulfate) 5 - 10 mg IV ASDIRECTED PRN PRN Reason: Systolic BP less than 100 Fentanyl (Sublimaze) 100 mcg IVPUSH ONETIME ONE Stop: 10/21/17 19:52 Last Admin: 10/21/17 20:03 Dose: 100 mcg Penicillin G Potassium 5 (millunits/ Sodium Chloride) 100 mls @ 200 mls/hr IV ONETIME ONE Stop: 10/21/17 08:44 Last Admin: 10/21/17 08:32 Dose: 200 mls/hr Penicillin G Potassium 2.5 (millunits/ Sodium Chloride) 50 mls @ 100 mls/hr IV Q4H [facility] Last Admin: 10/22/17 04:52 Dose: Not Given Oxytocin/Sodium Chloride (Pitocin In Ns 20 Units/1,000 Ml) 20 unit in 1,000 mls @ 999 mls/hr IV ONETIME ONE PRN Reason: Protocol Stop: 10/21/17 09:21 Last Titration: 10/21/17 23:20 Dose: 125 ml/hr, 125 mls/hr Lactated Ringer's (Ringers, Lactated) 500 mls @ 500 mls/hr IV ASDIRECTED SUSHIL Last Admin: 10/21/17 18:04 Dose: 500 mls/hr Lactated Ringer's (Ringers, Lactated) 1,000 mls @ 999 mls/hr IV .BOLUS ONE Stop: 10/21/17 21:32 Last Admin: 10/21/17 20:45 Dose: 999 mls/hr Lactated Ringer's (Ringers, Lactated) 1,000 mls @ 999 mls/hr IV .BOLUS ONE Stop: 10/21/17 21:32 Last Admin: 10/21/17 21:26 Dose: Not Given Ropivacaine (Naropin 0.2%) 100 mls @ 0 mls/hr EPIDUR ASDIRECTED SUSHIL; Titrate PRN Reason: Protocol Last Admin: 10/21/17 21:22 Dose: 12 mls/hr, 12 mls/hr Lactated Ringer's (Ringers, Lactated) 1,000 mls @ 999 mls/hr IV ONETIME ONE Stop: 10/21/17 23:40 Last Admin: 10/21/17 23:00 Dose: 999 mls/hr Methylergonovine Maleate (Methergine) 0.2 mg IV STAT ONE Stop: 10/21/17 23:01 Last Admin: 10/21/17 23:03 Dose: 0.2 mg Misoprostol (Cytotec) Confirm Administered Dose 50 mcg .ROUTE .STK-MED ONE Stop: 10/21/17 07:58 Last Admin: 10/21/17 08:13 Dose: Not Given Misoprostol (Cytotec) 50 mcg VAG ONETIME ONE Stop: 10/21/17 08:07 Last Admin: 10/21/17 07:55 Dose: 50 mcg Misoprostol (Cytotec) Confirm Administered Dose 800 mcg .ROUTE .STK-MED ONE Stop: 10/21/17 22:57 Last Admin: 10/22/17 00:58 Dose: Not Given Misoprostol (Cytotec) Confirm Administered Dose 800 mcg .ROUTE .STK-MED ONE Stop: 10/21/17 22:57 Last Admin: 10/22/17 00:58 Dose: Not Given Misoprostol (Cytotec) Confirm Administered Dose 800 mcg .ROUTE .STK-MED ONE Stop: 10/21/17 23:02 Last Admin: 10/22/17 00:58 Dose: Not Given Naloxone HCl (Narcan) 0.1 mg IVPUSH Q5M PRN PRN Reason: IF RESP RATE LESS THAN 6 - Interaction Disposition, : [place] in Room with Family Interaction: Holding Feeding: Breastfed ; Nursed Well Support Person: - Recovery Exam Fundal Tone: Firm Fundal Level: At Umbilicus Fundal Placement: Midline Lochia Amount: Moderate Lochia Color: Rubra/Red Perineum Description: Intact, Minimal Bruising/Swelling Episiotomy/Laceration: Approximated Bladder Status: Voiding Urinary Elimination: Voided - Exam General: Alert, Oriented HEENT: Pupils Equal Neck: Supple Lungs: Clear to Auscultation, Normal Respiratory Effort Cardiovascular: Regular Rate, Regular Rhythm GI/Abdominal Exam: Normal Bowel Sounds, Soft, Non-Tender, No Organomegaly, No Distention, No Abnormal Bruit, No Mass, Pelvis Stable Extremities: Normal Inspection, Normal Range of Motion, Non-Tender, No Pedal Edema, Normal Capillary Refill Skin: Warm, Dry, Intact Wound/Incisions: Healing Well Neurological: No New Focal Deficit Psy/Mental Status: Alert, Normal Affect, Normal Mood - Problem List & Annotations (1) Positive GBS test SNOMED Code(s): 5868301230999 Code(s): B95.1 - STREPTOCOCCUS, GROUP B, CAUSING DISEASES CLASSD ELSWHR Status: Acute Current Visit: Yes (2) Encounter for planned induction of labor SNOMED Code(s): 779850303 Code(s): Z34.90 - ENCNTR FOR SUPRVSN OF NORMAL , UNSP, UNSP TRIMESTER Status: Acute Current Visit: Yes (3) Post-dates SNOMED Code(s): 98873639 Code(s): O48.0 - POST-TERM Status: Acute Current Visit: Yes (4) Laceration of labia majora SNOMED Code(s): 144794106 Code(s): S31.41XA - LACERATION W/O FOREIGN BODY OF VAGINA AND VULVA, INIT ENCNTR Status: Acute Current Visit: Yes (5) Laceration of perineum SNOMED Code(s): 383747620 Code(s): S31.41XA - LACERATION W/O FOREIGN BODY OF VAGINA AND VULVA, INIT ENCNTR Status: Acute Current Visit: Yes (6) hemorrhage SNOMED Code(s): 62451895 Code(s): O72.1 - OTHER IMMEDIATE HEMORRHAGE Status: Acute Current Visit: Yes (7) SNOMED Code(s): 04774993 Code(s): Z34.90 - ENCNTR FOR SUPRVSN OF NORMAL , UNSP, UNSP TRIMESTER Status: Acute Current Visit: Yes Qualifiers: Weeks of gestation: 41 weeks Qualified Code(s): Z3A.41 - 41 weeks gestation of (8) Spontaneous vaginal delivery SNOMED Code(s): 06513407 Code(s): O80 - ENCOUNTER FOR FULL-TERM UNCOMPLICATED DELIVERY Status: Acute Current Visit: Yes - Problem List Review Problem List Initiated/Reviewed/Updated: Yes - My Orders Last 24 Hours: My Active Orders 10/21/17 20:32 Epidural Catheter Management [OM.PC] Urgent 10/21/17 21:00 Ayoub Catheter Insertion [Insert Urinary Catheter] [OM.PC] Q24H 10/22/17 00:06 Patient Status [ADT] Routine Acetaminophen/Codeine [Tylenol with Codeine No.3 300MG/30MG] 1 tab PO Q4H PRN Benzocaine [Oszh-M-Phpkvjw 20% [place]] See Dose Instructions TOP Q4H PRN Ibuprofen [Motrin] 600 mg PO Q6H PRN Lanolin [Lansinoh HPA] 1 gm TOP ASDIRECTED PRN Witch Ellie [Tucks] 1 pad TOP ASDIRECTED PRN Assess Lochia [WOMSER] Per Unit Routine Assess Uterine Involution [WOMSER] Per Unit Routine 10/22/17 00:07 Ice Therapy [OM.PC] Per Unit Routine Perineal Care [OM.PC] Per Unit Routine Sitz Bath [OM.PC] Per Unit Routine 10/22/17 00:11 Methylergonovine [Methergine] 0.2 mg PO TID PRN 10/22/17 09:00 Docusate Sodium [Colace] 100 mg PO BID 10/22/17 Breakfast Regular Diet [DIET] - Assessment Assessment:: 10/22/17 27 yr old 41 week gestation, with PPH and labial tears and perineal and vaginal wall tears. Doing well. Up and about, voiding HGB 11. Bleeding normal for post without problems GBS treated - Plan Plan:: 10/21/17 41 week IUP who is post dates, GBS positive induction for post dates Plan Misoprostol 50 mcg vaginally at 0800 monitor for labor up and about after one hour monitoring completed. GBS protocol 10/22/17 with at 41w0d with hemorrhage managed with methergine, pitocin, LR, laceration repair, and manual uterine massage -use methergine PRN overnight for uncontrolled bleeding -CBC this morning (10/22) -transfer pt to room -ice to bottom -routine cares--check vitals, monitor bleeding, ambulate as able 10/22/17 Support 48 hour required stay. Routine cares
[2017-10-22] MEDS ORDERED: Acetaminophen 325 MG Tab, 50 Tab Bulk Bottle PO PRN (22:03)
[2017-10-22] MEDS ORDERED: Ibuprofen 200 MG Tab, 24 Tab Bulk Bottle PO PRN (22:04)
[2017-10-23] MEDS: Docusate Sodium 100 MG Cap PO SCH (08:17)
--- NOTE | 2017-10-23 10:03 | PCM.PNPP ---
- General Info Date of Service: 10/23/17 (PPD 2 D/C) Admission Dx/Problem (Free Text): spontaneous vaginal delivery Functional Status: Reports: Pain Controlled - Review of Systems General: Reports: No Symptoms HEENT: Reports: No Symptoms Pulmonary: Reports: No Symptoms Cardiovascular: Reports: No Symptoms Gastrointestinal: Reports: No Symptoms Genitourinary: Reports: No Symptoms Musculoskeletal: Reports: No Symptoms Skin: Reports: No Symptoms Neurological: Reports: No Symptoms Psychiatric: Reports: No Symptoms - General Info Date of Service: 10/23/17 - Patient Data Vital Signs - Most Recent: Last Vital Signs Temp 97.3 F 10/23/17 08:11 Pulse 69 10/23/17 08:11 Resp 16 10/23/17 08:11 BP 112/73 10/23/17 08:11 Pulse Ox 98 10/23/17 08:11 Weight - Most Recent: 158 lb 0.014 oz I&O - Last 24 Hours: Intake & Output 10/22/17 10/23/17 10/23/17 22:59 06:59 14:59 Intake Total 800 1000 Balance 800 1000 Med Orders - Current: Current Medications Acetaminophen (Tylenol Bulk Bottle) 325 - 650 mg PO Q4H PRN PRN Reason: Pain Last Admin: 10/22/17 22:33 Dose: 650 mg Acetaminophen/Codeine Phosphate (Tylenol With Codeine No.3 300mg/30mg) 1 tab PO Q4H PRN PRN Reason: Pain (moderate 4-6) Last Admin: 10/22/17 03:03 Dose: 1 tab Benzocaine (Yfug-F-Mwujzka 20% [place]) 0 gm TOP Q4H PRN PRN Reason: Perineal Comfort Measure Docusate Sodium (Colace) 100 mg PO BID [facility] Last Admin: 10/23/17 08:17 Dose: 100 mg Emollient Ointment (Lansinoh Hpa) 1 gm TOP ASDIRECTED PRN PRN Reason: Sore Nipples Ibuprofen (Motrin Bulk Bottle) 600 mg PO Q6H PRN PRN Reason: Pain Last Admin: 10/22/17 22:33 Dose: 3 tab Methylergonovine Maleate (Methergine) 0.2 mg PO TID PRN PRN Reason: Bleeding Ondansetron HCl (Zofran Odt) 4 mg PO Q4H PRN PRN Reason: Nausea/Vomiting Sodium Chloride (Saline Flush) 10 ml FLUSH ASDIRECTED PRN PRN Reason: Keep Vein Open Witch Ellie (Tucks) 1 pad TOP ASDIRECTED PRN PRN Reason: Hemorrhoids Discontinued Medications Acetaminophen (Tylenol) 650 mg PO Q4H PRN PRN Reason: Pain (Mild 1-3) and fever Last Admin: 10/22/17 08:47 Dose: 650 mg Ephedrine Sulfate (Ephedrine Sulfate) 5 mg IVPUSH ONETIME ONE Stop: 10/21/17 20:33 Last Admin: 10/22/17 04:50 Dose: Not Given Ephedrine Sulfate (Ephedrine Sulfate) 5 - 10 mg IV ASDIRECTED PRN PRN Reason: Systolic BP less than 100 Fentanyl (Sublimaze) 100 mcg IVPUSH ONETIME ONE Stop: 10/21/17 19:52 Last Admin: 10/21/17 20:03 Dose: 100 mcg Penicillin G Potassium 5 (millunits/ Sodium Chloride) 100 mls @ 200 mls/hr IV ONETIME ONE Stop: 10/21/17 08:44 Last Admin: 10/21/17 08:32 Dose: 200 mls/hr Penicillin G Potassium 2.5 (millunits/ Sodium Chloride) 50 mls @ 100 mls/hr IV Q4H [facility] Last Admin: 10/22/17 04:52 Dose: Not Given Oxytocin/Sodium Chloride (Pitocin In Ns 20 Units/1,000 Ml) 20 unit in 1,000 mls @ 999 mls/hr IV ONETIME ONE PRN Reason: Protocol Stop: 10/21/17 09:21 Last Titration: 10/21/17 23:20 Dose: 125 ml/hr, 125 mls/hr Lactated Ringer's (Ringers, Lactated) 500 mls @ 500 mls/hr IV ASDIRECTED SUSHIL Last Admin: 10/21/17 18:04 Dose: 500 mls/hr Lactated Ringer's (Ringers, Lactated) 1,000 mls @ 999 mls/hr IV .BOLUS ONE Stop: 10/21/17 21:32 Last Admin: 10/21/17 20:45 Dose: 999 mls/hr Lactated Ringer's (Ringers, Lactated) 1,000 mls @ 999 mls/hr IV .BOLUS ONE Stop: 10/21/17 21:32 Last Admin: 10/21/17 21:26 Dose: Not Given Ropivacaine (Naropin 0.2%) 100 mls @ 0 mls/hr EPIDUR ASDIRECTED SUSHIL; Titrate PRN Reason: Protocol Last Admin: 10/21/17 21:22 Dose: 12 mls/hr, 12 mls/hr Lactated Ringer's (Ringers, Lactated) 1,000 mls @ 999 mls/hr IV ONETIME ONE Stop: 10/21/17 23:40 Last Admin: 10/21/17 23:00 Dose: 999 mls/hr Ibuprofen (Motrin) 600 mg PO Q6H PRN PRN Reason: mild pain or fever Last Admin: 10/22/17 18:17 Dose: 600 mg Methylergonovine Maleate (Methergine) 0.2 mg IV STAT ONE Stop: 10/21/17 23:01 Last Admin: 10/21/17 23:03 Dose: 0.2 mg Misoprostol (Cytotec) Confirm Administered Dose 50 mcg .ROUTE .STK-MED ONE Stop: 10/21/17 07:58 Last Admin: 10/21/17 08:13 Dose: Not Given Misoprostol (Cytotec) 50 mcg VAG ONETIME ONE Stop: 10/21/17 08:07 Last Admin: 10/21/17 07:55 Dose: 50 mcg Misoprostol (Cytotec) Confirm Administered Dose 800 mcg .ROUTE .STK-MED ONE Stop: 10/21/17 22:57 Last Admin: 10/22/17 00:58 Dose: Not Given Misoprostol (Cytotec) Confirm Administered Dose 800 mcg .ROUTE .STK-MED ONE Stop: 10/21/17 22:57 Last Admin: 10/22/17 00:58 Dose: Not Given Misoprostol (Cytotec) Confirm Administered Dose 800 mcg .ROUTE .STK-MED ONE Stop: 10/21/17 23:02 Last Admin: 10/22/17 00:58 Dose: Not Given Naloxone HCl (Narcan) 0.1 mg IVPUSH Q5M PRN PRN Reason: IF RESP RATE LESS THAN 6 - Interaction Infant Disposition, : [place] in Room with Family Infant Interaction: Holding Infant Feeding: Breastfed Infant; Nursed Well Support Person: - Recovery Exam Fundal Tone: Firm Fundal Level: 1 Fingerbreadths Below Umbilicus Fundal Placement: Midline Lochia Amount: Small, Moderate Lochia Color: Rubra/Red Perineum Description: Intact, Minimal Bruising/Swelling Other Perinuem Description: Digital exam, no hematomas, repair looks great Episiotomy/Laceration: Approximated Bladder Status: Voiding Urinary Elimination: Incontinent - Exam General: Alert, Oriented HEENT: Pupils Equal Neck: Supple Lungs: Clear to Auscultation, Normal Respiratory Effort Cardiovascular: Regular Rate, Regular Rhythm GI/Abdominal Exam: Normal Bowel Sounds, Soft, Non-Tender, No Organomegaly, No Distention, No Abnormal Bruit, No Mass, Pelvis Stable Extremities: Normal Inspection, Normal Range of Motion, Non-Tender, No Pedal Edema, Normal Capillary Refill Skin: Warm, Dry, Intact Wound/Incisions: Healing Well Neurological: No New Focal Deficit Psy/Mental Status: Alert, Normal Affect, Normal Mood - Problem List & Annotations (1) Positive GBS test SNOMED Code(s): 1471271015630 Code(s): B95.1 - STREPTOCOCCUS, GROUP B, CAUSING DISEASES CLASSD ELSWHR Status: Acute Current Visit: Yes (2) Encounter for planned induction of labor SNOMED Code(s): 460035525 Code(s): Z34.90 - ENCNTR FOR SUPRVSN OF NORMAL , UNSP, UNSP TRIMESTER Status: Acute Current Visit: Yes (3) Post-dates SNOMED Code(s): 12521405 Code(s): O48.0 - POST-TERM Status: Acute Current Visit: Yes (4) Laceration of labia majora SNOMED Code(s): 981347526 Code(s): S31.41XA - LACERATION W/O FOREIGN BODY OF VAGINA AND VULVA, INIT ENCNTR Status: Acute Current Visit: Yes (5) Laceration of perineum SNOMED Code(s): 134645853 Code(s): S31.41XA - LACERATION W/O FOREIGN BODY OF VAGINA AND VULVA, INIT ENCNTR Status: Acute Current Visit: Yes (6) hemorrhage SNOMED Code(s): 56314729 Code(s): O72.1 - OTHER IMMEDIATE HEMORRHAGE Status: Acute Current Visit: Yes (7) SNOMED Code(s): 62063362 Code(s): Z34.90 - ENCNTR FOR SUPRVSN OF NORMAL , UNSP, UNSP TRIMESTER Status: Acute Current Visit: Yes Qualifiers: Weeks of gestation: 41 weeks Qualified Code(s): Z3A.41 - 41 weeks gestation of (8) Spontaneous vaginal delivery SNOMED Code(s): 56127723 Code(s): O80 - ENCOUNTER FOR FULL-TERM UNCOMPLICATED DELIVERY Status: Acute Current Visit: Yes - Problem List Review Problem List Initiated/Reviewed/Updated: Yes - My Orders Last 24 Hours: My Active Orders 10/22/17 09:00 Docusate Sodium [Colace] 100 mg PO BID 10/22/17 22:03 Acetaminophen [Tylenol Bulk Bottle] 325 - 650 mg PO Q4H PRN 10/22/17 22:04 Ibuprofen [Motrin Bulk Bottle] 600 mg PO Q6H PRN - Assessment Assessment:: 10/22/17 27 yr old 41 week gestation, with PPH and labial tears and perineal and vaginal wall tears. Doing well. Up and about, voiding HGB 11. Bleeding normal for post without problems GBS treated 10/22/17 Doing well, no fever or pain, bleeding light and feels well Wants to go home well - Plan Plan:: 10/21/17 41 week IUP who is post dates, GBS positive induction for post dates Plan Misoprostol 50 mcg vaginally at 0800 monitor for labor up and about after one hour monitoring completed. GBS protocol 10/22/17 with at 41w0d with hemorrhage managed with methergine, pitocin, LR, laceration repair, and manual uterine massage -use methergine PRN overnight for uncontrolled bleeding -CBC this morning (10/22) -transfer pt to room -ice to bottom -routine cares--check vitals, monitor bleeding, ambulate as able 10/22/17 Support 48 hour required stay. Routine cares 10/22/17 Home today See me in 6 weeks for a post visit
== END 2017-10-23 16:15 | disposition home or self-care (01) | DRG 774 ==
LOC: JP.OB 07:16 → OBSVTOIN 20:50 → JP.MS 10-22 00:45
PROVIDERS: ADMIT Nurse Practitioner Family; ATTEND Nurse Practitioner Family
PROC: 10E0XZZ Delivery of Products of Conception, External Approach (ICD-10-PCS; principal; 2017-10-21)
PROC: 0KQM0ZZ Repair Perineum Muscle, Open Approach (ICD-10-PCS; 2017-10-21)
PROC: 10907ZC Drainage of Amniotic Fluid, Therapeutic from Products of Conception, Via Natural or Artificial Opening (ICD-10-PCS; 2017-10-21)
PROC: 3E0P7VZ Introduction of Hormone into Female Reproductive, Via Natural or Artificial Opening (ICD-10-PCS; 2017-10-21)
PROC: 3E033VJ Introduction of Other Hormone into Peripheral Vein, Percutaneous Approach (ICD-10-PCS; 2017-10-21)
PROC: 0UQMXZZ Repair Vulva, External Approach (ICD-10-PCS; 2017-10-21)
PROC: 0UQGXZZ Repair Vagina, External Approach (ICD-10-PCS; 2017-10-21)
PROC: 00HU33Z Insertion of Infusion Device into Spinal Canal, Percutaneous Approach (ICD-10-PCS; 2017-10-21)
DX: O48.0 Post-term pregnancy (principal); O72.1 Other immediate postpartum hemorrhage; Z3A.41 41 weeks gestation of pregnancy; O99.824 Streptococcus B carrier state complicating childbirth; O70.1 Second degree perineal laceration during delivery; O71.89 Other specified obstetric trauma; Z37.0 Single live birth
CPT/HCPCS: 36415; 51702; 59300; 59409; 80305; 81001; 85025; 99211; A9270-GY; J2210; J2540; J2590; J2795; J3010; J7030; J7050; J7120

== ENCOUNTER 2019-10-02 05:26 | Inpatient (IN) | payer OTHER ==
[2019-10-02] MEDS ORDERED: Misoprostol 50 MCG (1/2 of 100 MCG) Tab ONE (07:46)
[2019-10-02] MEDS ORDERED: Misoprostol 50 MCG (1/2 of 100 MCG) Tab VAG ONE (08:00)
[2019-10-02] MEDS ORDERED: Sodium Chloride 0.9% 10 ML Syringe FLUSH PRN ×2 (08:42→18:01)
--- NOTE | 2019-10-02 08:54 | PCM.LDHP ---
L&D History of Present Illness - General Date of Service: 10/02/19 Admit Problem/Dx: Patient Status Order with Admit Dx/Problem 10/02/19 08:44 Patient Status [ADT] Routine Admission Diagnosis/Problem Admission Diagnosis/Problem - Related Data Allergies/Adverse Reactions: Allergies Allergy/AdvReac Type Severity Reaction Status Date / Time No Known Allergies Allergy Verified 09/16/17 12:32 Home Medications: Home Meds Vits #93/Iron Fum/FA [ Formula Tablet] 1 tab PO DAILY 10/21/17 [History] Past Medical History Respiratory History: Reports: Other (See Below) Other Respiratory History: Exercise induced asthma years ago. [employer] History: Reports: - Infectious Disease History Infectious Disease History: Reports: Chicken Pox Social & Family History - Family History Family Medical History: Noncontributory - Tobacco Use Smoking Status *Q: Never Smoker Second Hand Smoke Exposure: No - Caffeine Use Caffeine Use: Reports: Coffee Other Caffeine Use: 1 cup per day Caffeine Use Comment: 1c/d - Recreational Drug Use Recreational Drug Use: No H&P Review of Systems - Review of Systems: Review Of Systems: See Below General: Reports: No Symptoms HEENT: Reports: No Symptoms Pulmonary: Reports: No Symptoms Cardiovascular: Reports: No Symptoms Gastrointestinal: Reports: No Symptoms Genitourinary: Reports: No Symptoms Musculoskeletal: Reports: No Symptoms Skin: Reports: No Symptoms Psychiatric: Reports: No Symptoms Neurological: Reports: No Symptoms Hematologic/Lymphatic: Reports: No Symptoms Immunologic: Reports: No Symptoms L&D Exam - Exam Exam: See Below - Vital Signs Vital Signs: Last Vital Signs Temp 37.2 C 10/02/19 07:13 Pulse 87 10/02/19 07:13 Resp 16 10/02/19 07:13 BP 106/69 10/02/19 07:13 Pulse Ox 100 10/02/19 07:13 Weight: 72.575 kg - OB Specific Contraction Duration (sec): 70 Contraction Frequency (min): x1 Contraction Intensity: Mild Movement: Active Heart Tones: Present Heart Rate (FHR) Variability: Moderate (6-25 bmp) Presentation: Vertex - Huang Score Huang Score Cervix Position: Posterior Huang Score Consistency: Soft Huang Score Effacement: 51-70% Huang Score Dilation: 1-2 cm Huang Score 's Station: -2 Huang Score Total: 6 - Exam General: Alert, Oriented, Cooperative HEENT: PERRLA, Conjunctiva Clear, EACs Clear, EOMI, Hearing Intact, Mucosa Moist & [place], Nares Patent, Normal Nasal Septum, Posterior Pharynx Clear, TMs Clear Neck: Supple, Trachea Midline Lungs: Clear to Auscultation, Normal Respiratory Effort Cardiovascular: Regular Rate, Regular Rhythm GI/Abdominal Exam: Normal Bowel Sounds, Soft, Non-Tender, No Organomegaly, No Distention, No Abnormal Bruit, No Mass, Pelvis Stable Rectal Exam: Normal Exam, Normal Rectal Tone Genitourinary: Normal external exam, Normal bimanual exam, Normal speculum exam Back Exam: Normal Inspection, Full Range of Motion Extremities: Normal Inspection, Normal Range of Motion, Non-Tender, No Pedal Edema, Normal Capillary Refill Skin: Warm, Dry, Intact Neurological: Cranial Nerves Intact, Reflexes Equal Bilateral Psychiatric: Alert, Normal Affect, Normal Mood - Patient Data Lab Results Last 24 hrs: Laboratory Results - last 24 hr 10/02/19 10/02/19 Range/Units 06:58 06:58 Urine Color Yellow (YELLOW) Urine Appearance Clear (CLEAR) Urine pH 7.5 (5.0-8.0) Ur Specific [place] 1.020 (1.008-1.030) Urine Protein Negative (NEGATIVE) mg/dL Urine Glucose (UA) Negative (NEGATIVE) mg/dL Urine Ketones Negative (NEGATIVE) mg/dL Urine Occult Blood Negative (NEGATIVE) Urine Nitrite Negative (NEGATIVE) Urine Bilirubin Negative (NEGATIVE) Urine Urobilinogen 0.2 (0.2-1.0) EU/dL Ur Leukocyte Esterase Small H (NEGATIVE) Urine RBC Not seen (0-5) Urine WBC 0-5 (0-5) Ur Epithelial Cells Few Amorphous Sediment Moderate Urine Bacteria Not seen Urine Mucus Not seen Urine Opiates Screen Negative (NEGATIVE) Ur Oxycodone Screen Negative (NEGATIVE) Urine Methadone Screen Negative (NEGATIVE) Ur Propoxyphene Screen Negative (NEGATIVE) Ur Barbiturates Screen Negative (NEGATIVE) Ur Tricyclics Screen Negative (NEGATIVE) Ur Phencyclidine Scrn Negative (NEGATIVE) Ur Amphetamine Screen Negative (NEGATIVE) U Methamphetamines Scrn Negative (NEGATIVE) Urine MDMA Screen Negative (NEGATIVE) U Benzodiazepines Scrn Negative (NEGATIVE) U Cocaine Metab Screen Negative (NEGATIVE) U Marijuana (THC) Screen Negative (NEGATIVE) - Problem List (1) Placental abnormality in third trimester SNOMED Code(s): 704491719, 985095665 ICD Code: O43.103 - MALFORMATION OF PLACENTA, UNSPECIFIED, THIRD TRIMESTER Status: Acute Current Visit: Yes (2) Encounter for induction of labor SNOMED Code(s): 025332959 ICD Code: Z34.90 - ENCNTR FOR SUPRVSN OF NORMAL , UNSP, UNSP TRIMESTER Status: Acute Current Visit: Yes (3) SNOMED Code(s): 78616388 ICD Code: Z34.90 - ENCNTR FOR SUPRVSN OF NORMAL , UNSP, UNSP TRIMESTER Status: Acute Current Visit: Yes Problem List Initiated/Reviewed/Updated: Yes Orders Last 24hrs: Active Orders 24 hr Category Date Time Status Patient Status [ADT] Routine ADT 10/02/19 08:44 Ordered Communication Order [RC] ASDIRECTED Care 10/02/19 08:44 Ordered Heart Tones [RC] PER UNIT ROUTINE Care 10/02/19 08:44 Ordered Non Stress Test [RC] Click to Edit Care 10/02/19 08:44 Ordered Notify Provider Vital Signs [RC] PRN Care 10/02/19 08:42 Ordered Notify Provider [RC] PRN Care 10/02/19 08:44 Ordered Up ad Kelly [RC] ASDIRECTED Care 10/02/19 08:42 Ordered Vital Signs [RC] PER UNIT ROUTINE Care 10/02/19 08:44 Ordered Regular Diet [DIET] Diet 10/02/19 Breakfast Ordered BPP w NST [US] Routine Exams 10/02/19 06:30 Taken CBC WITH AUTO DIFF [HEME] Routine Lab 10/02/19 08:42 Ordered Penicillin G Potassium [Pfizerpen] 2.5 millunits Med 10/02/19 13:00 Ordered Sodium Chloride 0.9% [Normal Saline] 50 ml IV Q4H Penicillin G Potassium [Pfizerpen] 5 millunits Med 10/02/19 08:46 Ordered Sodium Chloride 0.9% [Normal Saline] 50 ml IV ONETIME Sodium Chloride 0.9% [Saline Flush] Med 10/02/19 08:42 Ordered 10 ml FLUSH ASDIRECTED PRN Saline Lock Insert [OM.PC] Routine Oth 10/02/19 08:44 Ordered Resuscitation Status Routine Resus Stat 10/02/19 08:42 Ordered Medication Orders Penicillin G Potassium 5 (millunits/ Sodium Chloride) 100 mls @ 200 mls/hr IV ONETIME ONE Stop: 10/02/19 09:29 Penicillin G Potassium 2.5 (millunits/ Sodium Chloride) 50 mls @ 100 mls/hr IV Q4H SUSHIL Sodium Chloride (Saline Flush) 10 ml FLUSH ASDIRECTED PRN PRN Reason: Keep Vein Open Assessment/Plan Comment:: 10/02/2019 29 here at 39 1/7 weeks gestation for an induction of labor due to placenta abnormality and history of large baby with large laceration. Also maternal request. SVE-1/75/-2 Cytotec 50mcg placed vaginal FHTs category one Irregular contractions Plan- Monitor for active labor Monitor FHTs Can eat regular diet Pain control per patient request Plan and anticipate a vaginal delivery
[2019-10-02] MEDS ORDERED: Penicillin G Potassium 5 MILLUNITS in Sodium Chloride 0.9% 100 ML IV ONE (09:00)
[2019-10-02] MEDS ORDERED: Misoprostol 25 MCG (1/4 of 100 MCG) Tab VAG ONE (12:15)
[2019-10-02] MEDS: Penicillin G Potassium 2.5 MILLUNITS in Sodium Chloride 0.9% 50 ML IV SCH ×3 (12:19→20:02)
--- NOTE | 2019-10-02 17:59 | PCM.PNLD ---
Labor Progress Note - VS & Meds Vital Signs: Last Vital Signs Temp 36.6 C 10/02/19 15:30 Pulse 88 10/02/19 15:30 Resp 16 10/02/19 15:30 BP 113/66 10/02/19 15:30 Pulse Ox 97 10/02/19 15:30 Active Medications: Current Medications Penicillin G Potassium 2.5 (millunits/ Sodium Chloride) 50 mls @ 100 mls/hr IV Q4H SUSHIL Last Admin: 10/02/19 17:52 Dose: 100 mls/hr Oxytocin/Sodium Chloride (Pitocin In Ns 20 Units/1,000 Ml) 20 unit in 1,000 mls @ 6 mls/hr IV TITRATE SUSHIL; Protocol Last Admin: 10/02/19 17:24 Dose: 10 munits/min, 30 mls/hr Sodium Chloride (Saline Flush) 10 ml FLUSH ASDIRECTED PRN PRN Reason: Keep Vein Open Discontinued Medications Penicillin G Potassium 5 (millunits/ Sodium Chloride) 100 mls @ 200 mls/hr IV ONETIME ONE Stop: 10/02/19 09:29 Last Admin: 10/02/19 09:16 Dose: 200 mls/hr Misoprostol (Cytotec) 50 mcg VAG ONETIME ONE Stop: 10/02/19 08:01 Last Admin: 10/02/19 07:48 Dose: 50 mcg Misoprostol (Cytotec) Confirm Administered Dose 50 mcg .ROUTE .STK-MED ONE Stop: 10/02/19 07:47 Last Admin: 10/02/19 07:50 Dose: Not Given - Uterine Contractions Uterine Monitoring Mode: External [place] Contraction Frequency (min): 1-2.5 Contraction Duration (sec): 40-70 Contraction Intensity: Strong Uterine Resting Tone: Soft - Monitoring Monitor Mode: None Heart Rate (FHR) Variability: Moderate (6-25 bmp) Accelerations: Present, 15x15 Decelerations: None Strip Review: Category I - Vaginal Exam Dilation (cm): 3-4 Effacement (Percent): 85 Station: -1 Cervical Position: Midposition Sterile Vaginal Exam Performed By: Maricel Villegas Vaginal Exam Comment: AROM clear fluid - Labor Progress (Free Text) Labor Progress: 10/02/2019 Patient is doing well in labor SVE-3-4/85/-1 AROM done clear fluid FHTs category one Contractions regular on pitocin Patient breathing well through labor Plan- Continue to monitor labor Continue to monitor FHTs Continue Pitocin per protocol Pain management per patient request Plan and anticipate vaginal delivery
[2019-10-02] MEDS ORDERED: diphenhydrAMINE 50 MG/ML SDV IVPUSH PRN ×2 (18:01)
[2019-10-02] MEDS ORDERED: Lactated Ringers 1,000 ML IV ONE (18:01)
[2019-10-02] MEDS ORDERED: Naloxone 0.4 MG/ML SDV IVPUSH PRN (18:01)
[2019-10-02] MEDS ORDERED: ePHEDrine 50 MG/ML SDV IVPUSH PRN ×2 (18:01)
--- NOTE | 2019-10-02 18:01 | PCM.PNLD ---
Labor Progress Note - VS & Meds Vital Signs: Last Vital Signs Temp 36.6 C 10/02/19 15:30 Pulse 88 10/02/19 15:30 Resp 16 10/02/19 15:30 BP 113/66 10/02/19 15:30 Pulse Ox 97 10/02/19 15:30 Active Medications: Current Medications Penicillin G Potassium 2.5 (millunits/ Sodium Chloride) 50 mls @ 100 mls/hr IV Q4H SUSHIL Last Admin: 10/02/19 17:52 Dose: 100 mls/hr Oxytocin/Sodium Chloride (Pitocin In Ns 20 Units/1,000 Ml) 20 unit in 1,000 mls @ 6 mls/hr IV TITRATE SUSHIL; Protocol Last Admin: 10/02/19 17:24 Dose: 10 munits/min, 30 mls/hr Sodium Chloride (Saline Flush) 10 ml FLUSH ASDIRECTED PRN PRN Reason: Keep Vein Open Discontinued Medications Penicillin G Potassium 5 (millunits/ Sodium Chloride) 100 mls @ 200 mls/hr IV ONETIME ONE Stop: 10/02/19 09:29 Last Admin: 10/02/19 09:16 Dose: 200 mls/hr Misoprostol (Cytotec) 50 mcg VAG ONETIME ONE Stop: 10/02/19 08:01 Last Admin: 10/02/19 07:48 Dose: 50 mcg Misoprostol (Cytotec) Confirm Administered Dose 50 mcg .ROUTE .STK-MED ONE Stop: 10/02/19 07:47 Last Admin: 10/02/19 07:50 Dose: Not Given - Uterine Contractions Uterine Monitoring Mode: External [place] Contraction Frequency (min): 1-2.5 Contraction Duration (sec): 40-70 Contraction Intensity: Strong Uterine Resting Tone: Soft - Monitoring Monitor Mode: None Heart Rate (FHR) Variability: Moderate (6-25 bmp) Accelerations: Present, 15x15 Decelerations: None Strip Review: Category I - Vaginal Exam Dilation (cm): 1 Effacement (Percent): 80 Station: -1 Cervical Position: Midposition Sterile Vaginal Exam Performed By: Maricel Villegas - Labor Progress (Free Text) Labor Progress: 10/02/2019 Little progress made, decision made to start Pitocin Patient agrees with plan of care SVE-unchanged FHTs category one Plan- Start Pitocin per protocol Continue to monitor labor Continue to monitor FHTs Patient can be up ad ashley Patient can eat regular diet Plan and anticipate a vaginal delivery
[2019-10-02] MEDS ORDERED: Ropivacaine 200 MG in Premix Bag 1 BAG EPIDUR SCH (18:15)
[2019-10-02] MEDS ORDERED: fentaNYL 100 MCG/2 ML SDV ONE (19:02)
[2019-10-02] MEDS ORDERED: Misoprostol 200 MCG Tab ONE (19:02)
[2019-10-02] MEDS ORDERED: Methylergonovine 0.2 MG/1 ML Amp ONE (19:03)
[2019-10-02] MEDS ORDERED: Carboprost Tromethamine 250 MCG/1 ML Amp ONE (19:03)
[2019-10-02] MEDS ORDERED: fentaNYL 100 MCG/2 ML SDV IVPUSH PRN (19:05)
[2019-10-02] MEDS ORDERED: Misoprostol 200 MCG Tab RECTAL ONE (19:36)
[2019-10-02] MEDS ORDERED: Methylergonovine 0.2 MG/1 ML Amp IM PRN (19:38)
[2019-10-02] MEDS ORDERED: Acetaminophen/Codeine 300-30 MG Tab PO PRN (19:39)
[2019-10-02] MEDS ORDERED: Witch Hazel Medicated Pads 100/Jar TOP ONE (19:40)
[2019-10-02] MEDS ORDERED: Docusate Sodium 100 MG Cap PO PRN (19:40)
[2019-10-02] MEDS ORDERED: Ibuprofen 200 MG Tab, 24 Tab Bulk Bottle PO PRN (19:40)
[2019-10-02] MEDS ORDERED: Benzocaine 20% Top Spray 56 GM Bottle TOP ONE (19:40)
[2019-10-02] MEDS ORDERED: Lanolin 100% Cream 40 GM Tube TOP ONE (19:40)
[2019-10-02] MEDS ORDERED: Acetaminophen 325 MG Tab, 50 Tab Bulk Bottle PO PRN (19:40)
--- NOTE | 2019-10-02 20:10 | PCM.DEL ---
L & D Note - General Info Date of Service: 10/02/19 Mother's Due Date: 10/08/19 - Delivery Note Labor: Augmented by ARM, Augmented by Oxytocin Cervical Ripening Method: Misoprostil, Oxytocin Delivery Outcome: Livebirth Delivery Method: Spontaneous Vaginal Delivery-Single Infant Delivery Mode: Spontaneous Presentation: Left Occiput Anterior (ANNIE) Nuchal Cord: Present (clamped and cut on perineum) Anesthesia Type: Nitrous Oxide Amniotic Fluid Description: Clear Episiotomy Type: None Laceration: None Placenta: Spontaneous, Abnormal Cord: 3 Vessels Estimated Blood Loss: 1,000 Resuscitation Needed: No [place]: Stimulated, Warmed Score 1 min: 9 Score 5 min: 9 Post Delivery Events: Hemorrhage Second Stage Interventions: Reports: Second Nurse Assessed Progress of Descent, Second Nurse Reviewed Contraction Pattern, Second Nurse Reviewed Heart Tones, Encouragement Given, Pushing Effectively, Pushing, Left Side, Pushing, Pulls Own Legs Back Delivery Comments (Free Text/Narrative):: 10/02/2019 29 yo delivered a viable female in ANNIE position over an intact perineum at 1845 on 10/02/2019. head emerged and tight nuchal was noted , unable to reduce so double clamped and cut nuchal cord on perineum. Also noted to have a short cord. Infant then easily delivered the shoulders and was raised and placed on blanket on mothers abdomen. began to pink in color , and cry vigorously. APGARS-9/9, dried, stimulated, and warmed. Placenta came spontaneously but in multiple pieces with large clots and bleeding , fundal massage expressed more clots, did give cytotec rectal 800mg, methergine 0.2mg, and Pitocin wide open times one bag. Placenta sent to pathology will follow. Total EBL-1000mg. Fundus now firm and bleeding decreasing. Infant currently skin to skin with mother in labor room and both stable at this time. Stages of labor- 1st- [id number] - General Info Date of Service: 10/02/19 Functional Status: Reports: Pain Controlled - Review of Systems General: Reports: No Symptoms HEENT: Reports: No Symptoms Pulmonary: Reports: No Symptoms Cardiovascular: Reports: No Symptoms Gastrointestinal: Reports: No Symptoms Genitourinary: Reports: No Symptoms Musculoskeletal: Reports: No Symptoms Skin: Reports: No Symptoms Neurological: Reports: No Symptoms Psychiatric: Reports: No Symptoms - Patient Data Vitals - Most Recent: Last Vital Signs Temp 36.6 C 10/02/19 15:30 Pulse 88 10/02/19 15:30 Resp 16 10/02/19 15:30 BP 113/66 10/02/19 15:30 Pulse Ox 97 10/02/19 15:30 Weight - Most Recent: 72.575 kg Lab Results Last 24 Hours: Laboratory Results - last 24 hr 10/02/19 10/02/19 10/02/19 Range/Units 06:58 06:58 08:42 WBC 10.9 (4.5-11.0) K/uL RBC 3.22 L (3.30-5.50) M/uL Hgb 10.5 L (12.0-15.0) g/dL Hct 30.8 L (36.0-48.0) % MCV 96 (80-98) fL MCH 33 H (27-31) pg MCHC 34 (32-36) % Plt Count 216 (150-400) K/uL Neut % (Auto) 68 H (36-66) % Lymph % (Auto) 22 L (24-44) % [place] % (Auto) 8 H (2-6) % Eos % (Auto) 1 L (2-4) % Baso % (Auto) 1 (0-1) % Urine Color Yellow (YELLOW) Urine Appearance Clear (CLEAR) Urine pH 7.5 (5.0-8.0) Ur Specific [place] 1.020 (1.008-1.030) Urine Protein Negative (NEGATIVE) mg/dL Urine Glucose (UA) Negative (NEGATIVE) mg/dL Urine Ketones Negative (NEGATIVE) mg/dL Urine Occult Blood Negative (NEGATIVE) Urine Nitrite Negative (NEGATIVE) Urine Bilirubin Negative (NEGATIVE) Urine Urobilinogen 0.2 (0.2-1.0) EU/dL Ur Leukocyte Esterase Small H (NEGATIVE) Urine RBC Not seen (0-5) Urine WBC 0-5 (0-5) Ur Epithelial Cells Few Amorphous Sediment Moderate Urine Bacteria Not seen Urine Mucus Not seen Urine Opiates Screen Negative (NEGATIVE) Ur Oxycodone Screen Negative (NEGATIVE) Urine Methadone Screen Negative (NEGATIVE) Ur Propoxyphene Screen Negative (NEGATIVE) Ur Barbiturates Screen Negative (NEGATIVE) Ur Tricyclics Screen Negative (NEGATIVE) Ur Phencyclidine Scrn Negative (NEGATIVE) Ur Amphetamine Screen Negative (NEGATIVE) U Methamphetamines Scrn Negative (NEGATIVE) Urine MDMA Screen Negative (NEGATIVE) U Benzodiazepines Scrn Negative (NEGATIVE) U Cocaine Metab Screen Negative (NEGATIVE) U Marijuana (THC) Screen Negative (NEGATIVE) Med Orders - Current: Current Medications Acetaminophen (Tylenol Bulk Bottle) 0 mg PO Q4H PRN PRN Reason: Pain Acetaminophen/Codeine Phosphate (Tylenol With Codeine No.3 300mg/30mg) 1 tab PO Q4H PRN PRN Reason: Pain Diphenhydramine HCl (Benadryl) 25 mg IVPUSH Q6H PRN PRN Reason: Itching Diphenhydramine HCl (Benadryl) 50 mg IVPUSH Q6H PRN PRN Reason: Itching Docusate Sodium (Colace) 100 mg PO BID PRN PRN Reason: Constipation Ephedrine Sulfate (Ephedrine Sulfate) 10 mg IVPUSH ASDIRECTED PRN PRN Reason: Hypotension Ephedrine Sulfate (Ephedrine Sulfate) 10 mg IVPUSH ASDIRECTED PRN PRN Reason: Hypotension Fentanyl (Sublimaze) 100 mcg IVPUSH ONETIME PRN PRN Reason: Pain Penicillin G Potassium 2.5 (millunits/ Sodium Chloride) 50 mls @ 100 mls/hr IV Q4H SUSHIL Last Admin: 10/02/19 20:02 Dose: Not Given Oxytocin/Sodium Chloride (Pitocin In Ns 20 Units/1,000 Ml) 20 unit in 1,000 mls @ 6 mls/hr IV TITRATE SUSHIL; Protocol Last Titration: 10/02/19 18:49 Dose: 999 mls/hr Ropivacaine 200 mg/ Premix 100 mls @ 0 mls/hr EPIDUR ASDIRECTED SUSHIL Oxytocin/Sodium Chloride (Pitocin In Ns 20 Units/1,000 Ml) 20 unit in 1,000 mls @ 999 mls/hr IV ONETIME ONE; Protocol Stop: 10/02/19 20:35 Oxytocin/Sodium Chloride (Pitocin In Ns 20 Units/1,000 Ml) 20 unit in 1,000 mls @ 200 mls/hr IV TITRATE SUSHIL; Protocol Last Admin: 10/02/19 19:55 Dose: 200 mls/hr, 200 mls/hr Ibuprofen (Motrin Bulk Bottle) 600 mg PO Q6H PRN PRN Reason: Pain Methylergonovine Maleate (Methergine) 0.2 mg IM Q4H PRN PRN Reason: Bleeding Naloxone HCl (Narcan) 0.1 mg IVPUSH ASDIRECTED PRN PRN Reason: Oversedation Prenat Multivit/[facility]/Iron/Folic Ac ( Plus Iron) 1 each PO DAILY SUSHIL Sodium Chloride (Saline Flush) 10 ml FLUSH ASDIRECTED PRN PRN Reason: Keep Vein Open Sodium Chloride (Saline Flush) 10 ml FLUSH ASDIRECTED PRN PRN Reason: Keep Vein Open Discontinued Medications Benzocaine (Ikev-O-Qridvhj 20% [place]) 0 gm TOP ONETIME ONE Stop: 10/02/19 19:41 Carboprost Tromethamine (Hemabate Ds) Confirm Administered Dose 250 mcg .ROUTE .STK-MED ONE Stop: 10/02/19 19:04 Emollient Ointment (Lansinoh Hpa) 1 gm TOP ONETIME ONE Stop: 10/02/19 19:41 Fentanyl (Sublimaze) Confirm Administered Dose 100 mcg .ROUTE .STK-MED ONE Stop: 10/02/19 19:03 Penicillin G Potassium 5 (millunits/ Sodium Chloride) 100 mls @ 200 mls/hr IV ONETIME ONE Stop: 10/02/19 09:29 Last Admin: 10/02/19 09:16 Dose: 200 mls/hr Lactated Ringer's (Ringers, Lactated) 1,000 mls @ 999 mls/hr IV .BOLUS ONE Stop: 10/02/19 19:01 Last Admin: 10/02/19 20:03 Dose: Not Given Methylergonovine Maleate (Methergine) Confirm Administered Dose 0.2 mg .ROUTE .STK-MED ONE Stop: 10/02/19 19:04 Misoprostol (Cytotec) 50 mcg VAG ONETIME ONE Stop: 10/02/19 08:01 Last Admin: 10/02/19 07:48 Dose: 50 mcg Misoprostol (Cytotec) Confirm Administered Dose 50 mcg .ROUTE .STK-MED ONE Stop: 10/02/19 07:47 Last Admin: 10/02/19 07:50 Dose: Not Given Misoprostol (Cytotec) Confirm Administered Dose 800 mcg .ROUTE .STK-MED ONE Stop: 10/02/19 19:03 Misoprostol (Cytotec) 800 mcg RECTAL BID ONE Stop: 10/02/19 19:37 Amaris Argueta (Tucks) 1 pad TOP ONETIME ONE Stop: 10/02/19 19:41 - Exam General: Alert, Oriented, Cooperative HEENT: Pupils Equal, Pupils Reactive, EOMI, Mucous Membr. Moist/[place] Neck: Supple Lungs: Clear to Auscultation, Normal Respiratory Effort Cardiovascular: Regular Rate, Regular Rhythm GI/Abdominal Exam: Normal Bowel Sounds, Soft, Non-Tender, No Organomegaly, No Distention, No Abnormal Bruit, No Mass, Pelvis Stable (Female) Exam: Normal External Exam, Normal Speculum Exam, Normal Bimanual Exam, Enlarged Uterus, Vaginal Bleeding Back Exam: Normal Inspection, Full Range of Motion Extremities: Normal Inspection, Normal Range of Motion, Non-Tender, No Pedal Edema, Normal Capillary Refill Skin: Warm, Dry, Intact Neurological: No New Focal Deficit Psy/Mental Status: Alert, Normal Affect, Normal Mood - Problem List & Annotations (1) Placental abnormality in third trimester SNOMED Code(s): 633271936, 039967172 Code(s): O43.103 - MALFORMATION OF PLACENTA, UNSPECIFIED, THIRD TRIMESTER Status: Acute Current Visit: Yes (2) Encounter for induction of labor SNOMED Code(s): 888968105 Code(s): Z34.90 - ENCNTR FOR SUPRVSN OF NORMAL , UNSP, UNSP TRIMESTER Status: Acute Current Visit: Yes (3) SNOMED Code(s): 99394873 Code(s): Z34.90 - ENCNTR FOR SUPRVSN OF NORMAL , UNSP, UNSP TRIMESTER Status: Acute Current Visit: Yes Qualifiers: Weeks of gestation: 39 weeks Qualified Code(s): Z3A.39 - 39 weeks gestation of (4) Abnormal placenta SNOMED Code(s): 605769823 Code(s): O43.109 - MALFORMATION OF PLACENTA, UNSPECIFIED, UNSPECIFIED TRIMESTER Status: Acute Current Visit: Yes Qualifiers: Trimester: third trimester Qualified Code(s): O43.103 - Malformation of placenta, unspecified, third trimester (5) () SNOMED Code(s): 052265275 Code(s): Z78.9 - OTHER SPECIFIED HEALTH STATUS Status: Acute Current Visit: Yes (6) hemorrhage SNOMED Code(s): 66647444 Code(s): O72.1 - OTHER IMMEDIATE HEMORRHAGE Status: Acute Current Visit: Yes Qualifiers: hemorrhage type: other immediate Qualified Code(s): O72.1 - Other immediate hemorrhage (7) Spontaneous vaginal delivery SNOMED Code(s): 643947035 Code(s): O80 - ENCOUNTER FOR FULL-TERM UNCOMPLICATED DELIVERY Status: Acute Current Visit: Yes - Problem List Review Problem List Initiated/Reviewed/Updated: Yes - My Orders Last 24 Hours: My Active Orders 10/02/19 06:30 BPP w NST [US] Routine 10/02/19 08:42 Notify Provider Vital Signs [RC] PRN Up ad [place] [RC] ASDIRECTED Sodium Chloride 0.9% [Saline Flush] 10 ml FLUSH ASDIRECTED PRN Resuscitation Status Routine 10/02/19 08:44 Patient Status [ADT] Routine Communication Order [RC] ASDIRECTED Heart Tones [RC] PER UNIT ROUTINE Non Stress Test [RC] Click to Edit Notify Provider [RC] PRN Vital Signs [RC] PER UNIT ROUTINE Saline Lock Insert [OM.PC] Routine 10/02/19 12:15 Oxytocin/Normal Saline [Pitocin in NS 20 Units/1,000 ML] 20 unit in 1,000 ml IV TITRATE 10/02/19 13:00 Penicillin G Potassium [Pfizerpen] 2.5 millunits Sodium Chloride 0.9% [Normal Saline] 50 ml IV Q4H 10/02/19 18:01 Communication Order [RC] ASDIRECTED Communication Order [RC] Per Unit Routine Communication Order [RC] Per Unit Routine Communication Order [RC] Per Unit Routine Communication Order [RC] Per Unit Routine Communication Order [RC] ROUTINE Communication Order [RC] ROUTINE Communication Order [RC] ROUTINE Local Anesthetic Infusion Pump [RC] ASDIRECTED Nitrous Oxide Delivery [RC] ASDIRECTED Oxygen Therapy [RC] ASDIRECTED Oxygen Therapy [RC] ASDIRECTED PCEA Epidural [RC] ASDIRECTED PCEA Epidural [RC] ASDIRECTED Pulse Oximetry [RC] ASDIRECTED Pulse Oximetry [RC] ASDIRECTED Verify Patient Consent Obtain [RC] ASDIRECTED Vital Signs [RC] PER UNIT ROUTINE Vital Signs [RC] PER UNIT ROUTINE Naloxone [Narcan] 0.1 mg IVPUSH ASDIRECTED PRN Sodium Chloride 0.9% [Saline Flush] 10 ml FLUSH ASDIRECTED PRN diphenhydrAMINE [Benadryl] 25 mg IVPUSH Q6H PRN diphenhydrAMINE [Benadryl] 50 mg IVPUSH Q6H PRN ePHEDrine [ePHEDrine sulfate] 10 mg IVPUSH ASDIRECTED PRN ePHEDrine [ePHEDrine sulfate] 10 mg IVPUSH ASDIRECTED PRN Epidural Catheter Management [OM.PC] Routine Epidural Catheter Management [OM.PC] Urgent Medication Discontinuation Instructions [OM.PC] Routine Peripheral IV Insertion Pediatric [OM.PC] Routine 10/02/19 18:02 PCEA Epidural [RC] ASDIRECTED Peripheral IV Care [RC] . DIRECTED Urinary Catheter Assessment [RC] ASDIRECTED 10/02/19 18:15 Insert Urinary Catheter [OM.PC] ASDIRECTED Ropivacaine [Naropin 0.2%] 200 mg Premix Bag 1 bag EPIDUR ASDIRECTED 10/02/19 19:05 fentaNYL [Sublimaze] 100 mcg IVPUSH ONETIME PRN 10/02/19 19:35 Oxytocin/Normal Saline [Pitocin in NS 20 Units/1,000 ML] 20 unit in 1,000 ml IV ONETIME 10/02/19 19:38 Methylergonovine [Methergine] 0.2 mg IM Q4H PRN 10/02/19 19:39 Acetaminophen/Codeine [Tylenol with Codeine No.3 300MG/30MG] 1 tab PO Q4H PRN 10/02/19 19:40 Ambulate [RC] PER UNIT ROUTINE Acetaminophen [Tylenol Bulk Bottle] See Dose Instructions PO Q4H PRN Docusate Sodium [Colace] 100 mg PO BID PRN Ibuprofen [Motrin Bulk Bottle] 600 mg PO Q6H PRN Assess Lochia [WOMSER] Per Unit Routine Assess Uterine Involution [WOMSER] Per Unit Routine DVT/VTE Prophylaxis Reflex [OM.PC] Routine 10/02/19 19:41 Patient Status [ADT] Routine Vital Signs [RC] PFP 10/02/19 19:42 VTE/DVT Education [RC] Click to Edit Perineal Care [OM.PC] Per Unit Routine Sitz Bath [OM.PC] Per Unit Routine 10/02/19 19:45 Oxytocin/Normal Saline [Pitocin in NS 20 Units/1,000 ML] 20 unit in 1,000 ml IV TITRATE 10/02/19 23:45 CBC W/O DIFF,HEMOGRAM [HEME] Routine 10/02/19 Breakfast Regular Diet [DIET] 10/03/19 07:00 CBC WITH AUTO DIFF [HEME] Routine 10/03/19 09:00 Vit with Ca/FA/Iron [ Plus Iron] 1 each PO DAILY - Assessment Assessment:: 10/02/2019 Hemorrhage Abnormal Placenta - Plan Plan:: 10/02/2019 29 here at 39 1/7 weeks gestation for an induction of labor due to placenta abnormality and history of large baby with large laceration. Also maternal request. SVE-/-2 Cytotec 50mcg placed vaginal FHTs category one Irregular contractions Plan- Monitor for active labor Monitor FHTs Can eat regular diet Pain control per patient request Plan and anticipate a vaginal delivery 10/02/2019 Routine cares Support and encourage Closely monitor bleeding and fundus CBC tonight and again in am Plan discharge in 24-48 hours
[2019-10-03] MEDS ORDERED: Lanolin 100% Cream 40 GM Tube TOP ONE (02:45)
--- NOTE | 2019-10-03 10:17 | PCM.PNPP ---
- General Info Date of Service: 10/03/19 Functional Status: Reports: Pain Controlled - Review of Systems General: Reports: No Symptoms HEENT: Reports: No Symptoms Pulmonary: Reports: No Symptoms Cardiovascular: Reports: No Symptoms Gastrointestinal: Reports: No Symptoms Genitourinary: Reports: No Symptoms Musculoskeletal: Reports: No Symptoms Skin: Reports: No Symptoms Neurological: Reports: No Symptoms Psychiatric: Reports: No Symptoms - General Info Date of Service: 10/03/19 - Patient Data Vital Signs - Most Recent: Last Vital Signs Temp 35.8 C L 10/03/19 07:00 Pulse 56 L 10/03/19 07:00 Resp 16 10/03/19 07:00 BP 99/63 10/03/19 07:00 Pulse Ox 97 10/03/19 07:00 Weight - Most Recent: 72.575 kg Lab Results - Last 24 Hours: Laboratory Results - last 24 hr 10/02/19 10/03/19 Range/Units 23:40 06:49 WBC 18.4 H 15.0 H (4.5-11.0) K/uL RBC 4.00 3.72 (3.30-5.50) M/uL Hgb 12.9 D 12.2 (12.0-15.0) g/dL Hct 37.2 34.8 L (36.0-48.0) % MCV 93 94 (80-98) fL MCH 32 H 33 H (27-31) pg MCHC 35 35 (32-36) % Plt Count 227 201 (150-400) K/uL Neut % (Auto) 76 H (36-66) % Lymph % (Auto) 15 L (24-44) % [place] % (Auto) 9 H (2-6) % Eos % (Auto) 1 L (2-4) % Baso % (Auto) 0 (0-1) % Med Orders - Current: Current Medications Acetaminophen (Tylenol Bulk Bottle) 0 mg PO Q4H PRN PRN Reason: Pain Last Admin: 10/02/19 21:09 Dose: 325 mg Acetaminophen/Codeine Phosphate (Tylenol With Codeine No.3 300mg/30mg) 1 tab PO Q4H PRN PRN Reason: Pain Diphenhydramine HCl (Benadryl) 25 mg IVPUSH Q6H PRN PRN Reason: Itching Diphenhydramine HCl (Benadryl) 50 mg IVPUSH Q6H PRN PRN Reason: Itching Docusate Sodium (Colace) 100 mg PO BID PRN PRN Reason: Constipation Ephedrine Sulfate (Ephedrine Sulfate) 10 mg IVPUSH ASDIRECTED PRN PRN Reason: Hypotension Fentanyl (Sublimaze) 100 mcg IVPUSH ONETIME PRN PRN Reason: Pain Oxytocin/Sodium Chloride (Pitocin In Ns 20 Units/1,000 Ml) 20 unit in 1,000 mls @ 6 mls/hr IV TITRATE SUSHIL; Protocol Last Titration: 10/02/19 18:49 Dose: 999 mls/hr Ropivacaine 200 mg/ Premix 100 mls @ 0 mls/hr EPIDUR ASDIRECTED SUSHIL Oxytocin/Sodium Chloride (Pitocin In Ns 20 Units/1,000 Ml) 20 unit in 1,000 mls @ 200 mls/hr IV TITRATE SUSHIL; Protocol Last Admin: 10/02/19 19:55 Dose: 200 mls/hr, 200 mls/hr Ibuprofen (Motrin Bulk Bottle) 600 mg PO Q6H PRN PRN Reason: Pain Last Admin: 10/02/19 21:08 Dose: 600 mg Methylergonovine Maleate (Methergine) 0.2 mg IM Q4H PRN PRN Reason: Bleeding Last Admin: 10/02/19 19:17 Dose: 0.2 mg Naloxone HCl (Narcan) 0.1 mg IVPUSH ASDIRECTED PRN PRN Reason: Oversedation Prenat Multivit/[place]/Iron/Folic Ac ( Plus Iron) 1 each PO DAILY SUSHIL Sodium Chloride (Saline Flush) 10 ml FLUSH ASDIRECTED PRN PRN Reason: Keep Vein Open Discontinued Medications Benzocaine (Grvj-B-Avixnip 20% [place]) 0 gm TOP ONETIME ONE Stop: 10/02/19 19:41 Last Admin: 10/02/19 20:44 Dose: 1 spray Carboprost Tromethamine (Hemabate Ds) Confirm Administered Dose 250 mcg .ROUTE .STK-MED ONE Stop: 10/02/19 19:04 Last Admin: 10/02/19 21:07 Dose: Not Given Emollient Ointment (Lansinoh Hpa) 1 gm TOP ONETIME ONE Stop: 10/03/19 02:46 Last Admin: 10/03/19 06:30 Dose: 1 applic Ephedrine Sulfate (Ephedrine Sulfate) 10 mg IVPUSH ASDIRECTED PRN PRN Reason: Hypotension Fentanyl (Sublimaze) Confirm Administered Dose 100 mcg .ROUTE .STK-MED ONE Stop: 10/02/19 19:03 Last Admin: 10/02/19 21:06 Dose: Not Given Penicillin G Potassium 5 (millunits/ Sodium Chloride) 100 mls @ 200 mls/hr IV ONETIME ONE Stop: 10/02/19 09:29 Last Admin: 10/02/19 09:16 Dose: 200 mls/hr Penicillin G Potassium 2.5 (millunits/ Sodium Chloride) 50 mls @ 100 mls/hr IV Q4H SUSHIL Last Admin: 10/02/19 20:02 Dose: Not Given Lactated Ringer's (Ringers, Lactated) 1,000 mls @ 999 mls/hr IV .BOLUS ONE Stop: 10/02/19 19:01 Last Admin: 10/02/19 20:03 Dose: Not Given Oxytocin/Sodium Chloride (Pitocin In Ns 20 Units/1,000 Ml) 20 unit in 1,000 mls @ 999 mls/hr IV ONETIME ONE; Protocol Stop: 10/02/19 20:35 Last Admin: 10/02/19 21:08 Dose: Not Given Methylergonovine Maleate (Methergine) Confirm Administered Dose 0.2 mg .ROUTE .STK-MED ONE Stop: 10/02/19 19:04 Last Admin: 10/02/19 21:07 Dose: Not Given Misoprostol (Cytotec) 50 mcg VAG ONETIME ONE Stop: 10/02/19 08:01 Last Admin: 10/02/19 07:48 Dose: 50 mcg Misoprostol (Cytotec) Confirm Administered Dose 50 mcg .ROUTE .STK-MED ONE Stop: 10/02/19 07:47 Last Admin: 10/02/19 07:50 Dose: Not Given Misoprostol (Cytotec) Confirm Administered Dose 800 mcg .ROUTE .STK-MED ONE Stop: 10/02/19 19:03 Last Admin: 10/02/19 21:06 Dose: Not Given Misoprostol (Cytotec) 800 mcg RECTAL BID ONE Stop: 10/02/19 19:37 Last Admin: 10/02/19 19:15 Dose: 800 mcg Sodium Chloride (Saline Flush) 10 ml FLUSH ASDIRECTED PRN PRN Reason: Keep Vein Open Witbrandon Argueta (Tucks) 1 pad TOP ONETIME ONE Stop: 10/02/19 19:41 Last Admin: 10/02/19 20:44 Dose: 1 applic - Interaction Infant Disposition, : [place] in Room with Family Interaction: Holding Infant Infant Feeding: Breastfed Infant; Nursed Well Support Person: - Recovery Exam Fundal Tone: Firm Fundal Level: At Umbilicus Fundal Placement: Midline Lochia Amount: Moderate Lochia Color: Rubra/Red Perineum Description: Intact, Minimal Bruising/Swelling Episiotomy/Laceration: Approximated Bladder Status: Nonpalpable Urinary Elimination: Voided Other Urinary Elimination, : due to void - Exam General: Alert, Oriented, Cooperative HEENT: Pupils Equal, Pupils Reactive, EOMI, Mucous Membr. Moist/[place] Neck: Supple Lungs: Clear to Auscultation, Normal Respiratory Effort Cardiovascular: Regular Rate, Regular Rhythm GI/Abdominal Exam: Normal Bowel Sounds, Soft, Non-Tender, No Organomegaly, No Distention, No Abnormal Bruit, No Mass, Pelvis Stable Extremities: Normal Inspection, Normal Range of Motion, Non-Tender, No Pedal Edema, Normal Capillary Refill Skin: Warm, Dry, Intact Neurological: No New Focal Deficit Psy/Mental Status: Alert, Normal Affect, Normal Mood - Problem List & Annotations (1) Placental abnormality in third trimester SNOMED Code(s): 133768150, 808740756 Code(s): O43.103 - MALFORMATION OF PLACENTA, UNSPECIFIED, THIRD TRIMESTER Status: Acute Current Visit: Yes (2) Encounter for induction of labor SNOMED Code(s): 706474896 Code(s): Z34.90 - ENCNTR FOR SUPRVSN OF NORMAL , UNSP, UNSP TRIMESTER Status: Acute Current Visit: Yes (3) SNOMED Code(s): 22494420 Code(s): Z34.90 - ENCNTR FOR SUPRVSN OF NORMAL , UNSP, UNSP TRIMESTER Status: Acute Current Visit: Yes Qualifiers: Weeks of gestation: 39 weeks Qualified Code(s): Z3A.39 - 39 weeks gestation of (4) Abnormal placenta SNOMED Code(s): 730660386 Code(s): O43.109 - MALFORMATION OF PLACENTA, UNSPECIFIED, UNSPECIFIED TRIMESTER Status: Acute Current Visit: Yes Qualifiers: Trimester: third trimester Qualified Code(s): O43.103 - Malformation of placenta, unspecified, third trimester (5) () SNOMED Code(s): 183790961 Code(s): Z78.9 - OTHER SPECIFIED HEALTH STATUS Status: Acute Current Visit: Yes (6) hemorrhage SNOMED Code(s): 21567333 Code(s): O72.1 - OTHER IMMEDIATE HEMORRHAGE Status: Acute Current Visit: Yes Qualifiers: hemorrhage type: other immediate Qualified Code(s): O72.1 - Other immediate hemorrhage (7) Spontaneous vaginal delivery SNOMED Code(s): 389007856 Code(s): O80 - ENCOUNTER FOR FULL-TERM UNCOMPLICATED DELIVERY Status: Acute Current Visit: Yes - Problem List Review Problem List Initiated/Reviewed/Updated: Yes - My Orders Last 24 Hours: My Active Orders 10/02/19 12:15 Oxytocin/Normal Saline [Pitocin in NS 20 Units/1,000 ML] 20 unit in 1,000 ml IV TITRATE 10/02/19 18:01 Communication Order [RC] Per Unit Routine Communication Order [RC] Per Unit Routine Oxygen Therapy [RC] ASDIRECTED Pulse Oximetry [RC] ASDIRECTED Verify Patient Consent Obtain [RC] ASDIRECTED Vital Signs [RC] PER UNIT ROUTINE Naloxone [Narcan] 0.1 mg IVPUSH ASDIRECTED PRN Sodium Chloride 0.9% [Saline Flush] 10 ml FLUSH ASDIRECTED PRN diphenhydrAMINE [Benadryl] 25 mg IVPUSH Q6H PRN diphenhydrAMINE [Benadryl] 50 mg IVPUSH Q6H PRN ePHEDrine [ePHEDrine sulfate] 10 mg IVPUSH ASDIRECTED PRN Epidural Catheter Management [OM.PC] Routine Epidural Catheter Management [OM.PC] Urgent Medication Discontinuation Instructions [OM.PC] Routine Peripheral IV Insertion Pediatric [OM.PC] Routine 10/02/19 18:02 Peripheral IV Care [RC] . DIRECTED 10/02/19 18:15 Insert Urinary Catheter [OM.PC] ASDIRECTED Ropivacaine [Naropin 0.2%] 200 mg Premix Bag 1 bag EPIDUR ASDIRECTED 10/02/19 19:05 fentaNYL [Sublimaze] 100 mcg IVPUSH ONETIME PRN 10/02/19 19:38 Methylergonovine [Methergine] 0.2 mg IM Q4H PRN 10/02/19 19:39 Acetaminophen/Codeine [Tylenol with Codeine No.3 300MG/30MG] 1 tab PO Q4H PRN 10/02/19 19:40 Ambulate [RC] PER UNIT ROUTINE Acetaminophen [Tylenol Bulk Bottle] See Dose Instructions PO Q4H PRN Docusate Sodium [Colace] 100 mg PO BID PRN Ibuprofen [Motrin Bulk Bottle] 600 mg PO Q6H PRN Assess Lochia [WOMSER] Per Unit Routine Assess Uterine Involution [WOMSER] Per Unit Routine DVT/VTE Prophylaxis Reflex [OM.PC] Routine 10/02/19 19:41 Patient Status [ADT] Routine 10/02/19 19:42 VTE/DVT Education [RC] Click to Edit Perineal Care [OM.PC] Per Unit Routine Sitz Bath [OM.PC] Per Unit Routine 10/02/19 19:45 Oxytocin/Normal Saline [Pitocin in NS 20 Units/1,000 ML] 20 unit in 1,000 ml IV TITRATE 10/03/19 09:00 Vit with Ca/FA/Iron [ Plus Iron] 1 each PO DAILY - Assessment Assessment:: 10/02/2019 Hemorrhage Abnormal Placenta 10/03/2019 Day One Voiding and Passing gas Fundus firm and bleeding decreasing well Hgb stable GBS positive-antibiotics received - Plan Plan:: 10/02/2019 29 here at 39 1/7 weeks gestation for an induction of labor due to placenta abnormality and history of large baby with large laceration. Also maternal request. SVE-/-2 Cytotec 50mcg placed vaginal FHTs category one Irregular contractions Plan- Monitor for active labor Monitor FHTs Can eat regular diet Pain control per patient request Plan and anticipate a vaginal delivery 10/02/2019 Routine cares Support and encourage Closely monitor bleeding and fundus CBC tonight and again in am Plan discharge in 24-48 hours 10/03/2019 Continue routine cares Continue support and encourage Closely monitor bleeding and fundus Plan discharge in 24-48 hours
[2019-10-03] MEDS: Prenatal Multivitamin with Calcium/Folic Acid/Iron Tab PO SCH (13:36)
--- NOTE | 2019-10-04 08:08 | PCM.PNPP ---
- General Info Date of Service: 10/04/19 Functional Status: Reports: Pain Controlled - Review of Systems General: Reports: No Symptoms HEENT: Reports: No Symptoms Pulmonary: Reports: No Symptoms Cardiovascular: Reports: No Symptoms Gastrointestinal: Reports: No Symptoms Genitourinary: Reports: No Symptoms Musculoskeletal: Reports: No Symptoms Skin: Reports: No Symptoms Neurological: Reports: No Symptoms Psychiatric: Reports: No Symptoms - General Info Date of Service: 10/04/19 - Patient Data Vital Signs - Most Recent: Last Vital Signs Temp 35.2 C L 10/04/19 03:53 Pulse 62 10/04/19 03:53 Resp 18 10/04/19 03:53 BP 106/75 10/04/19 03:53 Pulse Ox 97 10/04/19 03:53 Weight - Most Recent: 72.575 kg I&O - Last 24 Hours: Intake & Output 10/03/19 10/04/19 10/04/19 22:59 06:59 14:59 Intake Total 700 Balance 700 Med Orders - Current: Current Medications Acetaminophen (Tylenol Bulk Bottle) 0 mg PO Q4H PRN PRN Reason: Pain Last Admin: 10/02/19 21:09 Dose: 325 mg Acetaminophen/Codeine Phosphate (Tylenol With Codeine No.3 300mg/30mg) 1 tab PO Q4H PRN PRN Reason: Pain Diphenhydramine HCl (Benadryl) 25 mg IVPUSH Q6H PRN PRN Reason: Itching Diphenhydramine HCl (Benadryl) 50 mg IVPUSH Q6H PRN PRN Reason: Itching Docusate Sodium (Colace) 100 mg PO BID PRN PRN Reason: Constipation Ephedrine Sulfate (Ephedrine Sulfate) 10 mg IVPUSH ASDIRECTED PRN PRN Reason: Hypotension Fentanyl (Sublimaze) 100 mcg IVPUSH ONETIME PRN PRN Reason: Pain Oxytocin/Sodium Chloride (Pitocin In Ns 20 Units/1,000 Ml) 20 unit in 1,000 mls @ 6 mls/hr IV TITRATE SUSHIL; Protocol Last Titration: 10/02/19 18:49 Dose: 999 mls/hr Ropivacaine 200 mg/ Premix 100 mls @ 0 mls/hr EPIDUR ASDIRECTED SUSHIL Oxytocin/Sodium Chloride (Pitocin In Ns 20 Units/1,000 Ml) 20 unit in 1,000 mls @ 200 mls/hr IV TITRATE SUSHIL; Protocol Last Admin: 10/02/19 19:55 Dose: 200 mls/hr, 200 mls/hr Ibuprofen (Motrin Bulk Bottle) 600 mg PO Q6H PRN PRN Reason: Pain Last Admin: 10/02/19 21:08 Dose: 600 mg Methylergonovine Maleate (Methergine) 0.2 mg IM Q4H PRN PRN Reason: Bleeding Last Admin: 10/02/19 19:17 Dose: 0.2 mg Naloxone HCl (Narcan) 0.1 mg IVPUSH ASDIRECTED PRN PRN Reason: Oversedation Prenat Multivit/Restaurant Area Director/Iron/Folic Ac ( Plus Iron) 1 each PO DAILY [facility] Last Admin: 10/03/19 13:36 Dose: 1 each Sodium Chloride (Saline Flush) 10 ml FLUSH ASDIRECTED PRN PRN Reason: Keep Vein Open Discontinued Medications Benzocaine (Hjqo-B-[place]ub[place]je 20% [place]) 0 gm TOP ONETIME ONE Stop: 10/02/19 19:41 Last Admin: 10/02/19 20:44 Dose: 1 spray Carboprost Tromethamine (Hemabate Ds) Confirm Administered Dose 250 mcg .ROUTE .STK-MED ONE Stop: 10/02/19 19:04 Last Admin: 10/02/19 21:07 Dose: Not Given Emollient Ointment (Lansinoh Hpa) 1 gm TOP ONETIME ONE Stop: 10/03/19 02:46 Last Admin: 10/03/19 06:30 Dose: 1 applic Ephedrine Sulfate (Ephedrine Sulfate) 10 mg IVPUSH ASDIRECTED PRN PRN Reason: Hypotension Fentanyl (Sublimaze) Confirm Administered Dose 100 mcg .ROUTE .STK-MED ONE Stop: 10/02/19 19:03 Last Admin: 10/02/19 21:06 Dose: Not Given Penicillin G Potassium 5 (millunits/ Sodium Chloride) 100 mls @ 200 mls/hr IV ONETIME ONE Stop: 10/02/19 09:29 Last Admin: 10/02/19 09:16 Dose: 200 mls/hr Penicillin G Potassium 2.5 (millunits/ Sodium Chloride) 50 mls @ 100 mls/hr IV Q4H [facility] Last Admin: 10/02/19 20:02 Dose: Not Given Lactated Ringer's (Ringers, Lactated) 1,000 mls @ 999 mls/hr IV .BOLUS ONE Stop: 10/02/19 19:01 Last Admin: 10/02/19 20:03 Dose: Not Given Oxytocin/Sodium Chloride (Pitocin In Ns 20 Units/1,000 Ml) 20 unit in 1,000 mls @ 999 mls/hr IV ONETIME ONE; Protocol Stop: 10/02/19 20:35 Last Admin: 10/02/19 21:08 Dose: Not Given Methylergonovine Maleate (Methergine) Confirm Administered Dose 0.2 mg .ROUTE .STK-MED ONE Stop: 10/02/19 19:04 Last Admin: 10/02/19 21:07 Dose: Not Given Misoprostol (Cytotec) 50 mcg VAG ONETIME ONE Stop: 10/02/19 08:01 Last Admin: 10/02/19 07:48 Dose: 50 mcg Misoprostol (Cytotec) Confirm Administered Dose 50 mcg .ROUTE .STK-MED ONE Stop: 10/02/19 07:47 Last Admin: 10/02/19 07:50 Dose: Not Given Misoprostol (Cytotec) Confirm Administered Dose 800 mcg .ROUTE .STK-MED ONE Stop: 10/02/19 19:03 Last Admin: 10/02/19 21:06 Dose: Not Given Misoprostol (Cytotec) 800 mcg RECTAL BID ONE Stop: 10/02/19 19:37 Last Admin: 10/02/19 19:15 Dose: 800 mcg Sodium Chloride (Saline Flush) 10 ml FLUSH ASDIRECTED PRN PRN Reason: Keep Vein Open Amaris Argueta (Tucks) 1 pad TOP ONETIME ONE Stop: 10/02/19 19:41 Last Admin: 10/02/19 20:44 Dose: 1 applic - Infant Interaction Infant Disposition, : in Room with Family Infant Interaction: Holding Infant Feeding: Breastfed Infant; Nursed Well Support Person: - Recovery Exam Fundal Tone: Firm Fundal Level: 2 Fingerbreadths Below Umbilicus Fundal Placement: Midline Lochia Amount: Small Lochia Color: Rubra/Red Perineum Description: Intact, Minimal Bruising/Swelling Episiotomy/Laceration: None Bladder Status: Nonpalpable Urinary Elimination: Voided Other Urinary Elimination, : due to void - Exam General: Alert, Oriented HEENT: Pupils Equal, Pupils Reactive, EOMI, Mucous Membr. Moist/[place] Neck: Supple Lungs: Clear to Auscultation, Normal Respiratory Effort Cardiovascular: Regular Rate, Regular Rhythm GI/Abdominal Exam: Normal Bowel Sounds, Soft, Non-Tender, No Organomegaly, No Distention, No Abnormal Bruit, No Mass, Pelvis Stable Extremities: Normal Inspection, Normal Range of Motion, Non-Tender, No Pedal Edema, Normal Capillary Refill Skin: Warm, Dry, Intact Neurological: No New Focal Deficit Psy/Mental Status: Alert, Normal Affect, Normal Mood - Problem List & Annotations (1) Placental abnormality in third trimester SNOMED Code(s): 642049780, 423372777 Code(s): O43.103 - MALFORMATION OF PLACENTA, UNSPECIFIED, THIRD TRIMESTER Status: Acute Current Visit: Yes (2) Encounter for induction of labor SNOMED Code(s): 045883453 Code(s): Z34.90 - ENCNTR FOR SUPRVSN OF NORMAL , UNSP, UNSP TRIMESTER Status: Acute Current Visit: Yes (3) SNOMED Code(s): 44352447 Code(s): Z34.90 - ENCNTR FOR SUPRVSN OF NORMAL , UNSP, UNSP TRIMESTER Status: Acute Current Visit: Yes Qualifiers: Weeks of gestation: 39 weeks Qualified Code(s): Z3A.39 - 39 weeks gestation of (4) Abnormal placenta SNOMED Code(s): 417779876 Code(s): O43.109 - MALFORMATION OF PLACENTA, UNSPECIFIED, UNSPECIFIED TRIMESTER Status: Acute Current Visit: Yes Qualifiers: Trimester: third trimester Qualified Code(s): O43.103 - Malformation of placenta, unspecified, third trimester (5) (infant) SNOMED Code(s): 024377651 Code(s): Z78.9 - OTHER SPECIFIED HEALTH STATUS Status: Acute Current Visit: Yes (6) hemorrhage SNOMED Code(s): 84626076 Code(s): O72.1 - OTHER IMMEDIATE HEMORRHAGE Status: Acute Current Visit: Yes Qualifiers: hemorrhage type: other immediate Qualified Code(s): O72.1 - Other immediate hemorrhage (7) Spontaneous vaginal delivery SNOMED Code(s): 201011833 Code(s): O80 - ENCOUNTER FOR FULL-TERM UNCOMPLICATED DELIVERY Status: Acute Current Visit: Yes - Problem List Review Problem List Initiated/Reviewed/Updated: Yes - My Orders Last 24 Hours: My Active Orders 10/03/19 09:00 Vit with Ca/FA/Iron [ Plus Iron] 1 each PO DAILY - Assessment Assessment:: 10/02/2019 Hemorrhage Abnormal Placenta 10/03/2019 Day One Voiding and Passing gas Fundus firm and bleeding decreasing well Hgb stable GBS positive-antibiotics received 10/04/2019 Day Two Voiding and Passing gas Fundus firm and bleeding decreasing well Hgb stable GBS positive-antibiotics received Discharge home today - Plan Plan:: 10/02/2019 29 here at 39 1/7 weeks gestation for an induction of labor due to placenta abnormality and history of large baby with large laceration. Also maternal request. SVE-/-2 Cytotec 50mcg placed vaginal FHTs category one Irregular contractions Plan- Monitor for active labor Monitor FHTs Can eat regular diet Pain control per patient request Plan and anticipate a vaginal delivery 10/02/2019 Routine cares Support and encourage Closely monitor bleeding and fundus CBC tonight and again in am Plan discharge in 24-48 hours 10/03/2019 Continue routine cares Continue support and encourage Closely monitor bleeding and fundus Plan discharge in 24-48 hours 10/04/2019 Continue routine cares Continue support and encourage Plan discharge in 24-48 hours
[2019-10-04] MEDS: Prenatal Multivitamin with Calcium/Folic Acid/Iron Tab PO SCH (09:14)
--- NOTE | 2019-10-05 12:47 | US ---
BPP w NST INDICATION: induction COMPARISON: None FINDINGS: Single live IUP in: Cephalic position. heart rate: 150 BPM. Biophysical profile score: 8/8. ELIGIO: 9.8 cm. IMPRESSION: Normal biophysical profile score of 8/8.
== END 2019-10-04 09:15 | disposition home or self-care (01) | DRG 806 ==
LOC: JP.OB 06:47 → OBSVTOIN 18:45 → JP.MS 18:46
PROVIDERS: ADMIT Advanced Practice Midwife; ATTEND Advanced Practice Midwife
PROC: 10E0XZZ Delivery of Products of Conception, External Approach (ICD-10-PCS; principal; 2019-10-02)
PROC: 10907ZC Drainage of Amniotic Fluid, Therapeutic from Products of Conception, Via Natural or Artificial Opening (ICD-10-PCS; 2019-10-02)
PROC: 3E0P7VZ Introduction of Hormone into Female Reproductive, Via Natural or Artificial Opening (ICD-10-PCS; 2019-10-02)
DX: O43.93 Unspecified placental disorder, third trimester (principal); O72.1 Other immediate postpartum hemorrhage; Z37.0 Single live birth; O69.1XX0 Labor and delivery complicated by cord around neck, with compression, not applicable or unspecified; Z3A.39 39 weeks gestation of pregnancy
CPT/HCPCS: 36415; 59409; 76818; 76818-26; 80305-QW; 81001; 85025; 85027; 88307; A9270-GY; J2210; J2540; J2590; J7050